=== PATIENT | male | born 1965 | race Caucasian/White ===

== ENCOUNTER 2021-04-27 01:03 | Observation (INO) | payer BC, SELFPAY ==
[2021-04-27] VITALS (18 sets, daily range): BP systolic 95–119; BP diastolic 57–79; PULSE 74–98; RESP 15–19; TEMP 36.7–37.2; O2SAT 94–97; BMI 23.1
--- NOTE | 2021-04-27 02:24 | CTR_ITS ---
PROCEDURE INFORMATION: Exam: CTA Chest With Contrast Exam date and time: 04/27/2021 2:24 AM Age: 55 years old Clinical indication: Right-sided; Prior surgery; Surgery date: 6+ months; Surgery type: Left kidney cancer; Patient HX: Right sided chest pain x 3 months getting worse; Additional info: SOB cp TECHNIQUE: Imaging protocol: Computed tomographic angiography of the chest with contrast. 3D rendering (Not supervised by radiologist): MIP and/or 3D reconstructed images were created by the technologist. Radiation optimization: All CT scans at this facility use at least one of these dose optimization techniques: automated exposure control; mA and/or kV adjustment per patient size (includes targeted exams where dose is matched to clinical indication); or iterative reconstruction. Contrast material: VISIPAQUE; Contrast volume: 95 ml; Contrast route: INTRAVENOUS (IV); COMPARISON: CTA Chest-Pulmonary Emb [id number] 03/11/2017 8:22 PM RADIATION DOSE METRICS: Total DLP (mGy-cm): 649.7 FINDINGS: Pulmonary arteries: Normal. No pulmonary emboli. Aorta: Unremarkable. No aortic aneurysm. No aortic dissection. Lungs: Moderate right lower lobe pneumonia with moderate to severe left lower lobe pneumonia. Pleural spaces: Unremarkable. No pneumothorax. No pleural effusion. Heart: Unremarkable. No cardiomegaly. No pericardial effusion. Lymph nodes: Calcified left hilar nodes and/or mediastinal nodes and/or lung granulomas consistent with old granulomatous disease. Gallbladder and bile ducts: Surgical clips in the gallbladder fossa consistent with cholecystectomy. Spleen: One or more accessory splenules. 16.0 x 13.8 cm moderate splenomegaly. Bones/joints: Unremarkable. No acute fracture. Soft tissues: Unremarkable. CT/CT angio chest PE protcl [id number] IMPRESSION: 1. Moderate right lower lobe pneumonia with moderate to severe left lower lobe pneumonia. 2. 16.0 x 13.8 cm moderate splenomegaly. 3. No pulmonary embolus or aortic dissection. Radiation Dose CTDIVOL = (mGy): DLP = 649.7 (mGy-cm)
--- NOTE | 2021-04-27 02:26 | ECG_ITS ---
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 Measurements Intervals [place] Rate: 97 P: 36 WV: 164 QRS: 14 QRSD: 100 T: 30 QT: 341 QTc: 435 Interpretive Statements SINUS RHYTHM INTERPRETATION BASED ON A DEFAULT AGE OF 40 YEARS Compared to ECG 09/20/2018 02:02:07 Intraventricular conduction delay no longer present Electronically Signed On 04-28-2021 9:37:38 CDT by Kacy Monet M.D. [id number]
--- NOTE | 2021-04-27 02:30 | W.ED.SOB ---
HPI - SOB/Dyspnea General: Chief Complaint: Shortness of Breath/Dyspnea Stated Complaint: pneumonia worsening Time Seen by Provider: 04/27/21 01:33 History of Present Illness: HPI Narrative: 85-year-old male with a history of COPD/emphysema, lymphoma, and kidney cancer, presents with cough, pleuritic right-sided chest pain, and shortness of breath. He says he has been sick on and off for the last month or more. He has been treated at least 2 times for pneumonia as an outpatient. He is also been treated with steroids he says he improves for a bit, but then his status declines rapidly. He said he has had a 25 pound weight loss in the last couple of months. Cough is productive of a green sputum. MD elicited complaint: shortness of breath, cough and chest pain Pertinent past history: COPD and pneumonia Onset (ago): week(s) Context: recent illness Timing: progressively worsening Severity: moderate Exacerbating factors: exertion Known history of: COPD Associated symptoms: Reports chest congestion, chest pain, cough, fever(s), nausea and vomiting (Posttussive); Deny abdominal pain or dizziness Review of Systems Const: Reports: fever(s) Eyes: Denies: change in vision ENMT: Denies: swelling of lips/tongue, bleeding gums or sinus pain Card: Reports: chest pain Resp: Reports: chest congestion GI: Reports: nausea and vomiting (Posttussive); Denies: abdominal pain : Denies: difficulty urinating, dysuria or hematuria Musc: Reports: back pain; Denies: neck pain Skin/Breast: Denies: rash or erythema Neuro: Denies: headache(s), dizziness or vertigo Psych: Denies: anxiety PFSH ED PFSH: Medical History (Updated 04/27/21 @ 05:29 by Chase Arambula DO) Neuropathy Non Hodgkin's lymphoma Polyarthritis Port-A-Cath in place Renal cell cancer Status post left nephrectomy Surgical History (Updated 04/27/21 @ 05:03 by Susan Riley MD) History of cholecystectomy S/P right knee arthroscopy Family History (Updated 04/27/21 @ 05:03 by Susan Riley MD) Other Cancer Social History (Updated 04/27/21 @ 05:04 by Susan Riley MD) Smoking and tobacco status: never smoked Alcohol intake: current Alcohol intake frequency: holidays/special occasions only Substance/Drug Use: never Housing: House Physical Exam Const: GENERAL APPEARANCE: frail appearing ORIENTATION/CONSCIOUSNESS: Yes oriented to person, Yes oriented to place and Yes oriented to time HENMT: COMMON NORMALS: normocephalic, external ears normal and Normal external nose present HEAD & SCALP: normocephalic FACE & SINUS: normal facial exam NOSE: Normal external nose present and No nasal discharge present EXTERNAL EAR: Yes external ears normal Eye: COMMON NORMALS: Equal, round and reactive pupils present, EOMs intact bilaterally and conjunctivae normal EYELID: eyelids normal CONJUNCTIVA: Yes conjunctivae normal PUPIL: Yes Equal, round and reactive pupils present Neck/C-Spine: GENERAL: No tracheal deviation Chest: COMMONS NORMALS: normal inspection of the chest CHEST: No tenderness Resp: COMMON NORMALS: clear to auscultation bilaterally EFFORT & INSPECTION: No tachypneic, No respiratory distress, No retractions, No uses accessory muscles and No tracheal deviation AUSCULTATION: clear to auscultation bilaterally, no rhonchi, no wheezes and lung sounds not diminished Cardio: COMMON NORMALS: regular rate and regular rhythm RATE: regular rate RHYTHM: regular rhythm HEART SOUNDS: no murmurs PERIPHERAL PULSES: radial pulses present GI: INSPECTION: No abdominal distension AUSCULTATION: No Hyperactive bowel sounds present and No Hypoactive bowel sounds present PALPATION: No Guarding due to palpation present (GI) and No Rigid due to palpation PERCUSSION: no dullness to percussion and no tympanic to percussion Neuro: SENSORIUM/ORIENTATION: Yes oriented to person, Yes oriented to place and Yes oriented to time Psych: COMMON NORMALS: mental status grossly normal Skin: COMMON NORMALS: no rashes or lesions noted GENERAL SKIN EXAM: no rashes or lesions noted Course Vital Signs: Vital signs: Vital Signs Temperature 98.1 F 04/27/21 01:33 Pulse Rate 85 04/27/21 04:40 Respiratory Rate 19 H 04/27/21 04:40 Blood Pressure 119/74 04/27/21 04:40 Pulse Oximetry 94 04/27/21 04:40 MDM - SOB/Dyspnea MDM Narrative: Medical decision making narrative: 55-year-old ill-appearing gentleman with shortness of breath, pleuritic chest pain his hemoglobin is 14. White blood cell count is 14 with 81% neutrophils. His D-dimer is 0.35. Chest CT shows left greater than right-sided basilar pneumonia. He has been treated with 3 different types of antibiotics as an outpatient. He has failed all 3. He has a history of MRSA sepsis. He will be observed for IV vancomycin, and Zosyn broad-spectrum antibiotics given his history. Lab Data: Labs: Lab Results 04/27/21 04/27/21 04/27/21 Range/Units 01:41 01:41 01:41 WBC 14.1 H (4.0-10.0) 10^3/ uL RBC 4.59 (4.1-5.3) 10^6/u L Hgb 14.8 (11.7-16.6) g/dL Hct 41.8 L (42.0-52.0) % MCV 91.1 (80-94) fL MCH 32.2 (28.0-34.0) pg MCHC 35.4 (30.0-36.0) g/dL RDW 12.7 (12.1-15.1) % Plt Count 210 (130-400) 10^3/c mm MPV 10.8 H (7.4-10.4) fL Neut % (Auto) 81.3 % Lymph % (Auto) 8.8 % Blount % (Auto) 8.0 % Eos % (Auto) 0.9 % Baso % (Auto) 0.4 % Neut # (Auto) 11.44 H (1.8-7.7) 10^3/u L Lymph # (Auto) 1.2 (0.8-4.8) 10^3/u L Blount # (Auto) 1.1 H (0.2-0.9) 10^3/u L Eos # (Auto) 0.1 (0.0-0.8) 10^3/u L Baso # (Auto) 0.1 (0.0-0.1) 10^3/u L Nucleated RBC % (a uto) 0 % Nucleated RBCs # 0.0 /100WBC D-Dimer 0.35 (0-0.59) ug/mIFE U Sodium 136 (136-145) mmol/L Potassium 3.5 (3.5-5.1) mmol/L Chloride 99 (98-107) mmol/L Carbon Dioxide 22 (22-29) mmol/L Anion Gap 18.5 (5-19) BUN 10 (6-20) mg/dL Creatinine 1.0 (0.7-1.2) mg/dL GFR Calculation 77.3 L (90-130) mL/min Glucose 88 (65-115) mg/dL Calculated Osmolal ity 280 L (285-295) mOsm/k g Lactic Acid (0.5-2.2) mmol/L Calcium 9.2 (8.5-10.5) mg/dL Total Bilirubin 0.6 (0.15-1.2) mg/dL AST 13 (0-40) U/L ALT 8 (0-41) U/L Alkaline Phosphata se 95 (40-130) IU/L Troponin T Baselin e (0-15) ng/L NT-Pro-B Natriuret Pep 73 (0-125) pg/mL Total Protein 6.2 L (6.6-8.7) g/dL Albumin 0.2 L (3.5-5.2) g/dL Globulin 6.0 H (1.3-4.6) g/dL 04/27/21 04/27/21 Range/Units 01:41 01:41 WBC (4.0-10.0) 10^3/ uL RBC (4.1-5.3) 10^6/u L Hgb (11.7-16.6) g/dL Hct (42.0-52.0) % MCV (80-94) fL MCH (28.0-34.0) pg MCHC (30.0-36.0) g/dL RDW (12.1-15.1) % Plt Count (130-400) 10^3/c mm MPV (7.4-10.4) fL Neut % (Auto) % Lymph % (Auto) % Blount % (Auto) % Eos % (Auto) % Baso % (Auto) % Neut # (Auto) (1.8-7.7) 10^3/u L Lymph # (Auto) (0.8-4.8) 10^3/u L Blount # (Auto) (0.2-0.9) 10^3/u L Eos # (Auto) (0.0-0.8) 10^3/u L Baso # (Auto) (0.0-0.1) 10^3/u L Nucleated RBC % (a uto) % Nucleated RBCs # /100WBC D-Dimer (0-0.59) ug/mIFE U Sodium (136-145) mmol/L Potassium (3.5-5.1) mmol/L Chloride (98-107) mmol/L Carbon Dioxide (22-29) mmol/L Anion Gap (5-19) BUN (6-20) mg/dL Creatinine (0.7-1.2) mg/dL GFR Calculation (90-130) mL/min Glucose (65-115) mg/dL Calculated Osmolal ity (285-295) mOsm/k g Lactic Acid 1.1 (0.5-2.2) mmol/L Calcium (8.5-10.5) mg/dL Total Bilirubin (0.15-1.2) mg/dL AST (0-40) U/L ALT (0-41) U/L Alkaline Phosphata se (40-130) IU/L Troponin T Baselin e 6 (0-15) ng/L NT-Pro-B Natriuret Pep (0-125) pg/mL Total Protein (6.6-8.7) g/dL Albumin (3.5-5.2) g/dL Globulin (1.3-4.6) g/dL Discharge Plan Discharge Patient Disposition: Placed in Observation Clinical Impression: Community acquired pneumonia Qualifiers: Laterality: left Lung location: lower lobe of lung Qualified Code(s): J18.9 - Pneumonia, unspecified organism Coding Level of Care Code ED 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
[2021-04-27] MEDS: sodium chloride 0.9% 1,000 ML 999 ML IV (02:31)
[2021-04-27] MEDS: diphenhydrAMINE 50 mg/mL SDV 1mL IVP (02:41)
[2021-04-27] MEDS: hydrocortisone 100 mg/2 mL SDV IVP (02:41)
[2021-04-27] MEDS: morphine 4 mg/mL SDV 1 mL IVP (02:43)
[2021-04-27] MEDS: ondansetron 2 mg/ML SDV 2 mL 4 MG IVP (02:43)
[2021-04-27 02:46] LABS: Basophils # 0.1 10^3/uL (0.0-0.1); Basophils % 0.4 %; Eosinophils # 0.1 10^3/uL (0.0-0.8); Eosinophils % 0.9 %; Hematocrit 41.8 % (42.0-52.0); Hemoglobin 14.8 g/dL (11.7-16.6); Lymphocytes # 1.2 10^3/uL (0.8-4.8); Lymphocytes % 8.8 %; Mean Corpuscular HGB Conc 35.4 g/dL (30.0-36.0); Mean Corpuscular Hemoglobin 32.2 pg (28.0-34.0); Mean Corpuscular Volume 91.1 fL (80-94); Mean Platelet Volume 10.8 fL (7.4-10.4); Monocytes # 1.1 10^3/uL (0.2-0.9); Neutrophils # 11.44 10^3/uL (1.8-7.7); Neutrophils % 81.3 %; Nucleated Red Blood Cells % 0 %; Platelet Count 210 10^3/cmm (130-400); Red Blood Count 4.59 10^6/uL (4.1-5.3); Red Cell Distribution Width 12.7 % (12.1-15.1); White Blood Count 14.1 10^3/uL (4.0-10.0)
[2021-04-27 02:55] LABS: D Dimer 0.35 ug/mIFEU (0-0.59)
[2021-04-27 02:59] LABS: Lactic Sepsis W/Reflex 1.1 mmol/L (0.5-2.2)
[2021-04-27 03:01] LABS: Troponin(5th) Baseline 6 ng/L (0-15)
[2021-04-27] MEDS: iodixanol 320 mg/mL 100mL Btl IV (03:01)
[2021-04-27 03:10] LABS: Alanine Aminotransferase 8 U/L (0-41); Albumin Level 0.2 g/dL (3.5-5.2); Alkaline Phosphatase 95 IU/L (40-130); Aspartate Amino Transferase 13 U/L (0-40); Blood Urea Nitrogen 10 mg/dL (6-20); Calcium 9.2 mg/dL (8.5-10.5); Carbon Dioxide 22 mmol/L (22-29); Glomerular Filtration Rate 77.3 mL/min (90-130); Glucose 88 mg/dL (65-115); NT Pro B Type Natriuretic Pept 73 pg/mL (0-125); Total Bilirubin 0.6 mg/dL (0.15-1.2); Total Protein 6.2 g/dL (6.6-8.7)
[2021-04-27 03:16] LABS: Anion Gap 18.5 (5-19); Chloride 99 mmol/L (98-107); Osmolality Calculated 280 mOsm/kg (285-295); Potassium 3.5 mmol/L (3.5-5.1); Sodium 136 mmol/L (136-145)
--- NOTE | 2021-04-27 05:01 | P.HP_ITS ---
Providers/Chief Complaint Chief Complaint: pneumonia worsening History of Present Illness Amandeep Velásquez Jr is a 55 year old male who has history of renal cell cancer, non-Hodgkin's lymphoma currently in remission presented today with chief complaint of worsening shortness of breath and fatigue. Patient stating that his symptoms started 5 weeks ago with lethargy, fatigue and shortness of breath, he was seen at [facility], initially he was started on doxycycline, his symptoms improved but got worse as soon as he finished his antibiotic regimen, second time he was put on Levaquin, he experienced similar pattern of initial improvement and then declined after his antibiotics, he was seen at the [facility] third time, chest x-ray showed emphysematous changes, he was put on L evaquin again. At home he has not been feeling well he is describing right- sided chest discomfort which gets worse on any kind of movement, it is reproducible which he is describing as achy. No nausea, vomiting, fever, he only had 1 loose stool otherwise no active diarrhea. He decided to come to the hospital for worsening of his symptoms. Diagnosis in the ER revealed leukocytosis 14.1, D-dimer unremarkable, CTA chest rule out PE however showed basilar infiltrates. He was started on broad-spectrum antibiotics because he failed outpatient therapy. He was saturating well on room air Review of Systems Const: Reports: chills, body aches and fatigue; Denies: fever(s) Eyes: Denies: change in vision ENMT: Denies: throat pain Card: Denies: chest pain Resp: Reports: dyspnea, non-productive cough and pain on inspiration GI: Denies: abdominal pain : Denies: flank pain Musc: Denies: neck pain Skin/Breast: Denies: rash Neuro: Denies: headache(s) Psych: Denies: anxiety Endo: Denies: polyuria Kip/Lymph: Denies: easy bruising All/Imm: Denies: urticaria Medications/Allergies Allergies Allergy/AdvReac Type Severity Reaction Status Date / Time Iodinated Contrast Media Allergy ADR-Itching Unverified 04/27/21 03:18 vancomycin Allergy ALGY-Redness Verified 04/27/21 02:37 of Skin PFSH Acute PFSH: Medical History Neuropathy Non Hodgkin's lymphoma Polyarthritis Port-A-Cath in place Renal cell cancer Status post left nephrectomy Surgical History History of cholecystectomy S/P right knee arthroscopy Family History Other Cancer Social History Smoking and tobacco status: never smoked Alcohol intake: current Alcohol intake frequency: holidays/special occasions only Substance/Drug Use: never Housing: House Vitals/I&O/Wt Last Vital Signs Temp 98.1 F 04/27/21 01:33 Pulse 85 04/27/21 04:40 Resp 19 H 04/27/21 04:40 BP 119/74 04/27/21 04:40 Pulse Ox 94 04/27/21 04:40 04/26/21 04/26/21 04/27/21 14:59 22:59 06:59 Intake Total 1000 / 1000 Balance 1000 / 1000 Weight last 48 hrs Weight 81.647 kg Physical Exam Narrative: EXAM NARRATIVE: Middle-age male Who appears stated age, clinically looks well-hydrated No active respite distress or chest pain S1, S2 sinus rhythm Bilateral breath sounds inspiratory crackles noted at the bases Abdomen soft Lower extremity no edema gangrene ulcer Suntanned appearance Appropriate mood and affect EOMI, PERRLA GCS 15 awake alert oriented x3 No joint swelling Data : 04/27/21 01:41 04/27/21 01:41 A&P Assessment and plan (1) Community acquired pneumonia: Status: Acute Additional A&P Information Community-acquired pneumonia Procalcitonin unremarkable, D-dimer unremarkable, CT rule out PE bilateral infiltrates especially at the bases, will check COVID-19 Start DuoNeb, currently saturating well on room air I would like to give him another day of IV antibiotics and de-escalate if his leukocytosis improving Chest imaging did not reveal any recurrence of cancer We will check MRSA PCR Urine antigens and blood culture requested No signs of sepsis DVT prophylaxis Lovenox Cardiac diet Full code Attestations Medical Necessity Statement*: Likely will be discharged within 48 hours on oral antibiotics, failed outpatient therapy, symptoms consistent persistent after 3 rounds of antibiotics, lethargy and fatigue rule out COVID-19 Time Spent in Patient Care: 40mins Coding Level of Care Code Acute 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
[2021-04-27] MEDS: piperacillin-tazobactam 4.5 GM in sodium chloride 0.9% (plus) 50 ML IV (05:16)
[2021-04-27 05:33] LABS: C Reactive Protein 90.8 mg/L (0.0-4.9)
[2021-04-27 06:31] LABS: Ferritin 1044 ng/mL (30-400)
[2021-04-27] MEDS: vancomycin 1,000 MG in sodium chloride 0.9% 250 ML 125 MG IV (06:33)
[2021-04-27 06:46] LABS: SARS Covid-2 Antigen Negative (Negative)
[2021-04-27] MEDS: clindamycin 150 mg Capsule 300 MG PO ×3 (08:26→21:06)
[2021-04-27] MEDS: enoxaparin 40 mg/0.4 mL Syringe SUBCUT (08:26)
[2021-04-27] MEDS: ipratropium-albuterol 3 mL Neb INHALATION ×3 (08:56→21:15)
[2021-04-27 09:11] LABS: Lactate Dehydrogenase 157 U/L (135-225)
[2021-04-27 09:46] LABS: Erythrocyte Sedimentation Rate 72 mm/hr (0-10)
[2021-04-27 10:12] LABS: Add Urine Microscopic? NO; Charge for UA Resulting for Rev
[2021-04-27 10:15] LABS: Urine Appearance Clear (CLEAR); Urine Color Straw (Yellow); pH Urine 5 (5-7)
[2021-04-27 10:16] LABS: Bilirubin Urine Neg (Negative); Blood Urine Neg (Negative); Glucose Urine UA Norm (Normal); Ketones Urine Negative (Negative); Leukocyte Esterase Urine Negative (Negative); Nitrate Urine Negative (Negative); Protein Urine Neg (Negative); Urobilinogen Urine Norm (Negative)
[2021-04-27 11:32] LABS: HIV 1 & 2 Antibody Non-Reactive (Non-Reactiv); HIV 1 & 2 Antigen Non-Reactive (Non-Reactiv)
--- NOTE | 2021-04-27 11:47 | P.PN_ITS ---
Subjective Subjective: Interval history: He overall is doing about okay, slightly better. A bit less phlegm production, and so has been unable to provide sputum sample. Discussed with him regarding concerning findings with very elevated inflammatory markers, CRP over 90, ferritin of 1044. Also albumin very low (although not sure if may be this is spurious result as listed as 0.2.). Also elevated globulin. Discussed with him concern for additional condition which may be contributing to his protracted symptoms as he states he has not been feeling in the last 3 months. He is having sore throat. He reports occasional night sweats. Sometimes feeling hot, but not having fevers. He reports longstanding peripheral neuropathy. He has not noticed any lymphadenopathy. We discussed with him regarding splenomegaly noted on CT. He does get recurrent/protracted joint pains, which she states previously or even thought to be rheumatoid related, but does say that this was assessed previously. Discussed with him additional assessments including protein electrophoresis, HIV, MICHEL, RF, to be gin. 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 He verbalized understanding and agreement. Will be following up very closely. He normally sees Dr. Ryder Carrillo in [place] at [facility]. Vitals/I&O/Wt Last Vital Signs Temp 98.8 F 04/27/21 11:29 Pulse 95 04/27/21 11:29 Resp 18 04/27/21 11:29 BP 105/64 04/27/21 11:29 Pulse Ox 95 04/27/21 11:29 04/26/21 04/27/21 04/27/21 22:59 06:59 14:59 Intake Total 1050 / 1050 250 / 250 Output Total 700 / 700 Balance 1050 / 1050 -450 / -450 Weight last 48 hrs Weight 81.647 kg Physical Exam Const: COMMON NORMALS: no acute distress and patient oriented x3 HENMT: COMMON NORMALS: oropharynx normal Neck/C-Spine: COMMON NORMALS: no JVD Resp: COMMON NORMALS: normal respiratory effort and clear to auscultation bilaterally AUSCULTATION: clear to auscultation bilaterally and diminished lung sounds Cardio: COMMON NORMALS: no JVD, regular rhythm, S1 normal heart sound present, S2 normal heart sound present and No murmurs present (Cardio) RHYTHM: regular rhythm HEART SOUNDS: S1 normal heart sound present and S2 normal heart sound present GI: COMMON NORMALS: Normal to inspection, nondistended, normoactive bowel sounds present, Soft to palpation and non-tender PALPATION: Yes Soft to palpation Extremity: COMMON NORMALS: no joint enlargement and no pedal edema Neuro: COMMON NORMALS: patient oriented x3 and moves all extremities Skin: COMMON NORMALS: no rashes or lesions noted GENERAL SKIN EXAM: no rashes or lesions noted Data : 04/27/21 01:41 04/27/21 11:28 Micro: Microbiology 04/27/21 07:57 MRSA Culture - Final Nose 04/27/21 09:45 Legionella Urinary Antigen - Final Urine,Voided Bacterial Antigens - Final 04/27/21 05:40 Blood Culture - Preliminary Blood SPECIMEN COLLECTED 04/27/21 05:22 Blood Culture - Preliminary Blood SPECIMEN COLLECTED A&P Assessment and plan (1) Community acquired pneumonia: Discussed with him for now we will continue to treat for community- acquired pneumonia as seen on images in bilateral lower lobe distribution. However, he is not requiring oxygen, his phlegm production is decreasing. Additionally procalcitonin is 0.2. Continue to biotics for now, and will continue to monitor in the hospital overnight to exclude that he is worsening given other rather concerning findings including quite significant inflammatory markers with CRP 90, ferritin 1044, ESR obtained as well is 72. LDH normal, haptoglobin 342. Platelets are normal. He has chronic neuropathy. I do not feel lymphadenopathy, does have splenomegaly. He is having sore throat. Reports occasional sweats at night, although not regular. He reports chronic arthralgias. Quite significantly low albumin, I do not know that this result is real, 0.2. Requesting recheck. Does have elevated globulin level. Low total protein. Discussed with him. Concerns are as follows: Possible recurrence of lymphoma, possible recurrence of renal cell carcinoma, possible other associated conditions protracted atypical infection, possible Castleman disease, adult onset stills disease, or other condition. Doubt hemochromatosis as symptoms otherwise not compatible. We are checking additionally SPEP, immunofixation, HIV, MICHEL, RF. UA. Requested HHV 8. Continue to biotics for now. Will need close follow-up with his oncologist. Discussed with him consideration of follow-up with infectious disease. In case hypergammaglobulinemia suggestive of MM, avoid contrast study. Otherwise will need contrast CT abdomen pelvis to look additionally for lymphadenopathy, recurrence of renal cell cancer, or other concerning findings. Status: Acute Qualifiers: Laterality: left Lung location: lower lobe of lung Qualified Code(s): J18.9 - Pneumonia, unspecified organism Additional A&P Information Resume home medications. Attestations Medical Necessity Statement*: Continue hospitalization for assessment management of protracted malaise, persistent pneumonia not resolved with outpatient multiple treatments, significant inflammatory marker findings with concern for possible additional conditions causing his symptoms with history of lymphoma, renal cell cancer, with possibility of recurrence of one of his malignancies, renal cell cancer, lymphoma, or other hematologic malignancy, or Castleman disease, adult onset stills disease or atypical infection. Coding Level of Care Code Acute Material Requirements Planning Manager for [facility] Fwd Exam Comprehensive Diagnoses Community acquired pneumonia J18.9 Laterality: left Lung location: lower lobe of lung
[2021-04-27 11:53] LABS: Alanine Aminotransferase 7 U/L (0-41); Albumin Level 3.4 g/dL (3.5-5.2); Alkaline Phosphatase 95 IU/L (40-130); Aspartate Amino Transferase 10 U/L (0-40); Blood Urea Nitrogen 11 mg/dL (6-20); Calcium 9.6 mg/dL (8.5-10.5); Carbon Dioxide 27 mmol/L (22-29); Chloride 102 mmol/L (98-107); Globulin 2.7 g/dL (1.3-4.6); Glomerular Filtration Rate 87.3 mL/min (90-130); Glucose 116 mg/dL (65-115); Osmolality Calculated 286 mOsm/kg (285-295); Sodium 138 mmol/L (136-145); Total Bilirubin 0.7 mg/dL (0.15-1.2); Total Protein 6.1 g/dL (6.6-8.7)
[2021-04-27] MEDS: nystatin 100,000 unit/mL UDC 5 mL 500000 UNIT PO ×3 (12:50→21:07)
[2021-04-27] MEDS: HYDROcodone-acetaminophen 10-325 mg Tablet 1 TAB PO ×3 (12:53→23:25)
[2021-04-27] MEDS: fentaNYL 50 mcg Patch 1 PATCH TRANSDERMA (13:38)
[2021-04-27] MEDS: mupirocin oint 22 gm 1 APPLIC TOPICAL (17:03)
[2021-04-27] MEDS: vancomycin 1,250 MG/250 ML PIGGYBACK 166.67 MG IV (17:03)
[2021-04-27] MEDS: diphenhydrAMINE 50 mg/mL SDV 1mL 25 MG IVP (18:58)
[2021-04-28] VITALS (7 sets, daily range): BP systolic 99–105; BP diastolic 62–67; PULSE 78–90; RESP 17–18; TEMP 36.4–36.7; O2SAT 91–96
[2021-04-28] MEDS: clindamycin 150 mg Capsule 300 MG PO ×2 (04:02→08:26)
[2021-04-28 06:13] LABS: Basophils % 0.2 %; Eosinophils # 0.1 10^3/uL (0.0-0.8); Eosinophils % 1.6 %; Hematocrit 35.1 % (42.0-52.0); Hemoglobin 12.1 g/dL (11.7-16.6); Lymphocytes # 1.2 10^3/uL (0.8-4.8); Lymphocytes % 13.6 %; Mean Corpuscular HGB Conc 34.5 g/dL (30.0-36.0); Mean Corpuscular Hemoglobin 31.9 pg (28.0-34.0); Mean Corpuscular Volume 92.6 fL (80-94); Mean Platelet Volume 10.3 fL (7.4-10.4); Monocytes # 0.7 10^3/uL (0.2-0.9); Monocytes % 7.8 %; Neutrophils # 6.71 10^3/uL (1.8-7.7); Nucleated Red Blood Cells % 0 %; Platelet Count 186 10^3/cmm (130-400); Red Blood Count 3.79 10^6/uL (4.1-5.3); Red Cell Distribution Width 13.1 % (12.1-15.1); White Blood Count 8.8 10^3/uL (4.0-10.0)
[2021-04-28 06:52] LABS: C Reactive Protein 43.2 mg/L (0.0-4.9)
[2021-04-28] MEDS: enoxaparin 40 mg/0.4 mL Syringe SUBCUT (08:26)
[2021-04-28] MEDS: nystatin 100,000 unit/mL UDC 5 mL 500000 UNIT PO ×2 (08:26→12:05)
[2021-04-28] MEDS: mupirocin oint 22 gm 1 APPLIC TOPICAL (08:39)
[2021-04-28] MEDS: ipratropium-albuterol 3 mL Neb INHALATION (08:45)
[2021-04-28 09:22] LABS: PROTEIN, TOTAL 5.7 g/dL (6.1-8.1)
[2021-04-28] MEDS: HYDROcodone-acetaminophen 10-325 mg Tablet 1 TAB PO (10:13)
--- NOTE | 2021-04-28 10:16 | PC.SOCIAL ---
No needs from CM/SS patient does not qualify for O2
--- NOTE | 2021-04-28 11:41 | P.DS_ITS ---
Discharge Providers Date of Admission: 04/27/21 06:05 Date of Discharge: April 28, 2021 Attending Provider at Admission: Susan Riley MD Attending Provider at Discharge: Raphael Irwin Diagnoses at Discharge Discharge Diagnosis (1) Community acquired pneumonia: Status: Acute Permanent problem details: Nonresolving pneumonia, associated other symptoms, malaise, arthralgias, sore throat, chronic neuropathy, intermittent night sweats, noted splenomegaly, significantly elevated inflammatory markers. Qualifiers: Laterality: left Lung location: lower lobe of lung Qualified Code(s): J18.9 - Pneumonia, unspecified organism Reason for Visit Reason for Visit: pneumonia worsening Hospital Course Hospital Course Very pleasant 55-year-old gentleman with history of renal cell cancer status post nephrectomy several decades ago, non-Hodgkin's lymphoma in remission, history of Port-A-Cath with staphylococcal infection, Port-A-Cath removal, history of polyarthritis of unidentified etiology, not rheumatoid, was hospitalized for observation after nonresolving pneumonia despite treatment with several courses of antibiotics including doxycycline, and several courses of Levaquin. He describes symptoms of about 3 months duration, with lethargy, fatigue, shortness of breath. He also describes sore throat. Arthralgias. He has also longstanding peripheral neuropathy. He does report improvement in phlegm production which currently is resolving, and he cannot provide a very good sample. With history of bacteremia, blood culture had been collected, MRSA swab by PCR was negative. Urine bacterial antigens negative for Legionella, GBS, Haemophilus influenza, strep pneumo, meningococcus. Rapid antigen test for COVID-19 was negative. Sputum culture so far with moderate gram-negative rods, few gram-positive cocci in clusters. This will need to be followed up. CTA chest done on presentation showed moderate right lower lobe pneumonia with moderate to severe left lower lobe pneumonia. Also incidentally noted splenomegaly 16 x 13.8 cm. No pulmonary embolus or aortic dissection. Calcified left hilar and/or mediastinal nodes and/or lung granulomas consistent with old granulomatous disease. The protracted course of his illness alongside with very elevated acute phase reactants including ferritin of 1044, CRP 90.8, ESR 72, haptoglobin 342 pain concerning for other causes of his nonresolving pneumonia. On presentation with leukocytosis 14.1, today WBC count down to 8.8. He received treatment with clindamycin, vancomycin. He has not required any oxygen in the hospital, and does not qualify on home O2 evaluation. Additional concerning findings include elevated globulin level at 6 on presentation. Low albumin, 0.2, although this appears to have been spurious result. Today 3.4. Together with his symptoms of arthralgias, sore throat, neuropathy (although chronic), intermittent night sweats, splenomegaly, discussed with him additional possible etiologies of his nonresolving condition, including possible recurrence of malignancy with non-Hodgkin lymphoma or renal cell cancer. Possibly parap roteinemia. We did request electrophoresis, immunofixation. On examination I could not detect any lymph nodes that are enlarged apart from the noted splenomegaly. We discussed with him that in case of paraproteinemia, additional CT with contrast may be rather risky, especially with single kidney with history of nephrectomy. In case paraproteinemias excluded, he would then benefit from additional assessment for any other lymph node enlargement to aid investigation for potential recurrence of NHL and/or renal cell cancer. With the accompanying symptoms listed above we discussed additional p ossibilities including Castleman disease and with inflammatory changes, pulmonary changes, other possibilities including adult onset stills disease, or granulomatosis with polyangiitis. We also discussed possibility of protracted atypical infection. Additional investigations have been initiated after discussion with him with testing for HIV which has been negative. We have also requested for HHV 8 qualitative PCR. Additionally MICHEL and ANCA have been requested. Rheumatoid factor checked and is not elevated. UA was unremarkable. Given he is otherwise not requiring any oxygen support, remains without signs of sepsis, overall is feeling a little bit better, he is cautiously returning home today, however, discussed with him the importance and need for additional follow-up as we are suspecting there is additional underlying condition apart from simple pneumonia. He is asked to follow-up with his primary provider, he is asked to follow-up with his hematology speech and language specialist Dr. Ryder Carrillo in [place] at soonest available appointment after electrophoresis results are available to consider at that point safety of proceeding with contrast CT abdomen pelvis and/or other appropriate work-up. He is asked to follow-up with rheumatology, infectious disease. We discussed also consideration of possible ILD given pulmonary changes, overall fatigue, malaise, although he has not been hypoxic. 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 We are referring him additionally for pulmonary function testing, depending on results and input from other subspecialists, consider referral to pulmonology. He verbalized understanding and agreement with plan. He understands to seek medical attention immediately in case of any deterioration or new concerning symptoms. Physical Exam Const: COMMON NORMALS: no acute distress and patient oriented x3 HENMT: COMMON NORMALS: oropharynx normal Neck/C-Spine: COMMON NORMALS: no JVD Resp: COMMON NORMALS: normal respiratory effort and clear to auscultation bilaterally AUSCULTATION: clear to auscultation bilaterally Cardio: COMMON NORMALS: no JVD, regular rhythm, S1 normal heart sound present, S2 normal heart sound present and No murmurs present (Cardio) RHYTHM: regular rhythm HEART SOUNDS: S1 normal heart sound present and S2 normal heart sound present GI: COMMON NORMALS: Normal to inspection, nondistended, normoactive bowel sounds present, Soft to palpation and non-tender PALPATION: Yes Soft to palpation Extremity: COMMON NORMALS: no joint enlargement and no pedal edema Neuro: COMMON NORMALS: patient oriented x3 and moves all extremities Skin: COMMON NORMALS: no rashes or lesions noted GENERAL SKIN EXAM: no rashes or lesions noted Discharge Data Data Completed and Pending: Completed Studies During Hospitalization Category Date Time Status CT angio chest PE protcl [id number] Urge nt Cat Scan 04/27/21 02:24 Completed Pending at discharge Category Date Time Status MICHEL Screen w/ Ref lavell Routine Lab 04/27/21 09:49 Received Anti-Neutrophil C ytoplasmic AB Rout ine Lab 04/28/21 11:15 Ordered Blood Culture Sta t Lab 04/27/21 05:40 Results Immunofixation Se rum Routine Lab 04/27/21 10:07 Received Miscellaneous Cami t Routine Lab 04/27/21 11:28 Received Sputum Culture an d Gram Stain Stat Lab 04/27/21 10:54 Results Total Protein Shira ctrophoresis Routi ne Lab 04/27/21 10:07 Results Labs from last 24 hours 04/28/21 04/28/21 04/27/21 05:54 05:54 11:28 WBC 8.8 RBC 3.79 L Hgb 12.1 Hct 35.1 L MCV 92.6 MCH 31.9 MCHC 34.5 RDW 13.1 Plt Count 186 MPV 10.3 Neut % (Auto) 76.0 Lymph % (Auto) 13.6 [place] % (Auto) 7.8 Eos % (Auto) 1.6 Baso % (Auto) 0.2 Neut # (Auto) 6.71 Lymph # (Auto) 1.2 [place] # (Auto) 0.7 Eos # (Auto) 0.1 Baso # (Auto) 0.0 Nucleated RBC % (a uto) 0 Nucleated RBCs # 0.0 Sodium 138 Potassium 4.0 Chloride 102 Carbon Dioxide 27 Anion Gap 13.0 BUN 11 Creatinine 0.9 GFR Calculation 87.3 L Glucose 116 H Calculated Osmolal ity 286 Calcium 9.6 Total Bilirubin 0.7 AST 10 ALT 7 Alkaline Phosphata se 95 C-Reactive Protein 43.2 H Total Protein 6.1 L Albumin 3.4 L Globulin 2.7 04/27/21 10:07 WBC RBC Hgb Hct MCV MCH MCHC RDW Plt Count MPV Neut % (Auto) Lymph % (Auto) [place] % (Auto) Eos % (Auto) Baso % (Auto) Neut # (Auto) Lymph # (Auto) [place] # (Auto) Eos # (Auto) Baso # (Auto) Nucleated RBC % (a uto) Nucleated RBCs # Sodium Potassium Chloride Carbon Dioxide Anion Gap BUN Creatinine GFR Calculation Glucose Calculated Osmolal ity Calcium Total Bilirubin AST ALT Alkaline Phosphata se C-Reactive Protein Total Protein 5.7 L Albumin Globulin Vitals: Last Vital Signs Temp 98.0 F 04/28/21 08:00 Pulse 81 04/28/21 08:55 Resp 18 04/28/21 08:49 BP 105/67 04/28/21 08:00 Pulse Ox 94 04/28/21 09:38 Discharge Plan Discharge Patient Disposition: Home Condition: Stable Prescriptions: New doxycycline hyclate 100 mg capsule 100 mg PO BID 10 Days Qty: 20 RF: 0 cefdinir 300 mg capsule 300 mg PO BID 10 Days Qty: 20 RF: 0 Continued fentanyl 50 mcg/hr patch 72 hour 50 mcg transdermal Q3D RF: 0 Symbicort 160-4.5 mcg/actuation HFA aerosol inhaler 2 puff INHALATION DAILY RF: 0 nystatin 100,000 unit/mL suspension 5 ml PO QID RF: 0 hydrocodone-acetaminophen 1 tab PO QID PRN (Reason: Pain) RF: 0 mupirocin 2 % ointment 1 applic TOPICAL BID RF: 0 Discharge Orders: Discharge Order (Routine); Ordered 04/28/21 Ordered By: Raphael Irwin Referrals: Rheumatology [Provider Group] - 1 week (Please call Thursday to schedule a follow up appointment. Unresolving PNA, malaise, ferriting 1044, CRP 90.8, splenomegaly, arthralgia, sore throat, Hx malignancies) Macey Akcerman MD [Staff Physician] - 4-7 days (Please call Thursday to schedule a follow up appointment. Unresolving PNA, malaise, ferriting 1044, CRP 90.8, splenomegaly, Hx malignancies) Ryder Carrillo MD [Referring] - 1 week (Please call Thursday to schedule a follow up appointment. Unresolving PNA, malaise, ferriting 1044, CRP 90.8, splenomegaly, arthralgia, sore throat, Hx malignancies) Trish Hauser MD [Hospitalist] - 1 week (Unresolving PNA, malaise, ferritin 1044, CRP 90.8, splenomegaly, arthralgia, sore throat, Hx malignancies) Discharge Diet: Usual diet Discharge Activity: Increase activity as tolerated and Return to work/school after cleared by PCP/Specialist Patient Instructions: Doxycycline (By mouth), Cefdinir (By mouth), Pneumonia (GEN), Opioid Safety, Pneumonia Stoplight Activity Restrictions/Additional Instructions: Due to nonresolving pneumonia, associated elevated inflammatory markers, ferritin 1044, CRP 90.8, ESR 72, elevated globulin level on presentation, arthralgias, sore throat, protracted symptoms over about 3 months, additional work-up has been requested. Please follow-up regarding results with your primary provider as well as the specialists you are referred to. Additional studies pending are serum electrophoresis, immunofixation. MICHEL, ANCA. HHV 8. Please note HIV was negative. Rheumatoid factor not elevated. Please discuss with your primary provider and specialists in case there is no improvement in your condition regarding nonresolving pneumonia and additional symptoms which may be either due to persistent infection with atypical organism, possibility of recurrence of malignancy with history of non-Hodgkin lymphoma, renal cell cancer, possibility of additional conditions like Castleman disease, or inflammatory condition including Adult Onset Still's disease, or granulomatosis with polyangiitis. Please follow-up with your oncologist, rheumatology, infectious disease with soonest available appointments. Please note you are referred for pulmonary function testing in 2 weeks. Interstitial lung disease sometimes may present similarly as well. Following pulmonary function testing, depending on her condition, as well as input from the subspecialist physicians, discussed consideration of assessment by pulmonology. If returning to work, consider light duties, otherwise please return after you see your primary provider. Do not drive heavy machinery or climb heights. In case of development of fever, progressive shortness of breath, any chest pain, joint swelling, unusual rashes, or other concerning symptoms, seek medical attention. Discharge Attestations Time Spent in Discharge Care*: greater than 30 min Quality Metrics Clinical Quality Measures During this hospital stay, did patient experience: None Coding Level of Care Code Acute Chg FW [place] note Diagnoses Community acquired pneumonia J18.9 Laterality: left Lung location: lower lobe of lung
[2021-04-29 13:33] LABS: ALPHA 1 GLOBULIN 0.5 g/dL (0.2-0.3); BETA 1 GLOBULIN 0.3 g/dL (0.4-0.6); BETA 2 GLOBULIN 0.3 g/dL (0.2-0.5); GAMMA GLOBULIN 0.6 g/dL (0.8-1.7)
[2021-04-29 15:18] LABS: Anti-Nuclear Antibody Screen NEGATIVE (NEGATIVE)
== END 2021-04-28 13:34 | disposition home or self-care (01) ==
LOC: ER 05:29 → MEDSURG 08:01
PROVIDERS: Admitting Provider Internal Medicine; Emergency Provider Emergency Medicine; Visit Provider Internal Medicine
DX: J18.9 Pneumonia, unspecified organism (principal); Z85.53 Personal history of malignant neoplasm of renal pelvis
CPT/HCPCS: 36415; 71275; 80053; 81003; 82728; 83010; 83605; 83615; 83880; 84145; 84155; 84165; 84260; 84484; 85025; 85378; 85651; 86038; 86140; 86403; 86431; 87040; 87070; 87205; 87426; 87449; 87641; 87806; 93005; 94640; 96365; 96367; 96372; 96375; 99285; G0378; J1200; J1650; J1720; J2270; J2405; J2543; J3370; J7030; J7050; Q9967

== ENCOUNTER → 2021-08-15 11:00 | Outpatient (BNVA) | payer OTHER, SELFPAY | PROVIDERS: Visit Provider Internal Medicine | DX: M25.50 Pain in unspecified joint (principal); R79.82 Elevated C-reactive protein (CRP); G62.9 Polyneuropathy, unspecified; Z79.899 Other long term (current) drug therapy; Z11.59 Encounter for screening for other viral diseases; Z11.1 Encounter for screening for respiratory tuberculosis; R53.83 Other fatigue; Z90.5 Acquired absence of kidney; Z85.72 Personal history of non-Hodgkin lymphomas; Z85.528 Personal history of other malignant neoplasm of kidney; Z92.21 Personal history of antineoplastic chemotherapy | CPT/HCPCS: 36415; 81003; 82306; 82550; 82607; 82728; 82784; 83540; 84443; 85651; 86140; 86480; 86704; 86803; 86812; 87340; 99204 ==

== ENCOUNTER 2021-08-20 07:27 | Outpatient (CLI) | payer OTHER, SELFPAY ==
--- NOTE | 2021-08-20 07:33 | XRR_ITS ---
PROCEDURE INFORMATION: Exam: XR Right Foot Exam date and time: 08/20/2021 7:33 AM Age: 56 years old Clinical indication: Condition or disease; Other: Psoriasis, unspecified; Additional info: M25.50 - pain in unspecified joint TECHNIQUE: Imaging protocol: XR Right foot. Views: 1 or 2 views. COMPARISON: CR Ankle 3 views, RIGHT* [id number] 05/19/2015 6:41 PM FINDINGS: Bones/joints: Partially imaged right distal femur plate and screws. Bones intact and normally aligned. No acute or aggressive osseous lesion. Normal appearance of joint spaces. Soft tissues: Normal. XR/XR foot RT 2V [id number] IMPRESSION: No acute findings. Radiation Dose CTDIVOL = (mGy): DLP = (mGy-cm)
--- NOTE | 2021-08-20 07:33 | XRR_ITS ---
PROCEDURE INFORMATION: Exam: XR Bilateral Sacroiliac Joints Exam date and time: 08/20/2021 7:33 AM Age: 56 years old Clinical indication: Condition or disease; Other: Psoriasis, unspecified; Additional info: L40.9 - psoriasis, unspecified TECHNIQUE: Imaging protocol: XR Bilateral XR of the sacroiliac joints. Views: 3 or more views. COMPARISON: CT Abdomen/Pelvis Renal [id number] 03/11/2017 8:14 PM FINDINGS: Bones/joints: Sacroiliac joints appear normal. Lower lumbar degenerative changes, partially imaged. Soft tissues: Normal. XR/XR sacroiliac jts m 3V [id number] IMPRESSION: Normal appearance of the sacroiliac joints. Radiation Dose CTDIVOL = (mGy): DLP = (mGy-cm)
--- NOTE | 2021-08-20 07:33 | XRR_ITS ---
PROCEDURE INFORMATION: Exam: XR Left Foot Exam date and time: 08/20/2021 7:33 AM Age: 56 years old Clinical indication: Pain; Foot; Left; Prior surgery; Additional info: M25.50 - pain in unspecified joint TECHNIQUE: Imaging protocol: XR Left foot. Views: 1 or 2 views. COMPARISON: No relevant prior available FINDINGS: Bones/joints: Bones intact and normally aligned. Normal appearance of the joint spaces. Soft tissues: Normal. XR/XR foot LT 2V [id number] IMPRESSION: No acute findings. Radiation Dose CTDIVOL = (mGy): DLP = (mGy-cm)
--- NOTE | 2021-08-20 07:33 | XRR_ITS ---
PROCEDURE INFORMATION: Exam: XR Left Hand Exam date and time: 08/20/2021 7:33 AM Age: 56 years old Clinical indication: Condition or disease; Other: Psoriasis, unspecified; Additional info: M25.50 - pain in unspecified joint TECHNIQUE: Imaging protocol: XR Left hand. Views: 1 or 2 views. COMPARISON: No relevant prior studies available. FINDINGS: Bones/joints: No acute or aggressive osseous lesions. Bones intact and normally aligned. Incidental note of metallic ring partially obscuring the proximal phalanx of the 4th digit. Normal appearance of the joint spaces. Soft tissues: Normal. XR/XR hand LT 2V [id number] IMPRESSION: No acute radiographic findings. Radiation Dose CTDIVOL = (mGy): DLP = (mGy-cm)
--- NOTE | 2021-08-20 07:33 | XRR_ITS ---
PROCEDURE INFORMATION: Exam: XR Right Hand Exam date and time: 08/20/2021 7:33 AM Age: 56 years old Clinical indication: Condition or disease; Other: Psoriasis, unspecified; Additional info: M25.50 - pain in unspecified joint TECHNIQUE: Imaging protocol: XR Right hand. Views: 1 or 2 views. COMPARISON: No relevant prior studies available. FINDINGS: Bones/joints: Bones intact and normally aligned. No acute or aggressive osseous lesion. Normal appearance of the joint spaces. Soft tissues: Normal. XR/XR hand RT 2V [id number] IMPRESSION: No acute findings. Radiation Dose CTDIVOL = (mGy): DLP = (mGy-cm)
== END 2021-08-20 07:28 | disposition home or self-care (01) ==
PROVIDERS: PCP Family Medicine; Visit Provider Internal Medicine
DX: M25.50 Pain in unspecified joint (principal); L40.9 Psoriasis, unspecified
CPT/HCPCS: 72202; 73120; 73620

== ENCOUNTER → 2021-09-05 15:05 | Outpatient (BNVA) | payer OTHER, SELFPAY | PROVIDERS: PCP Family Medicine; Visit Provider Internal Medicine | DX: M25.50 Pain in unspecified joint (principal); R79.82 Elevated C-reactive protein (CRP); G62.9 Polyneuropathy, unspecified; R77.8 Other specified abnormalities of plasma proteins | CPT/HCPCS: 99214 ==

== ENCOUNTER 2022-02-04 11:24 | Outpatient (CLI) | payer OTHER, SELFPAY ==
--- NOTE | 2022-02-04 11:38 | XR_ITS ---
WS: [id number] XR lumbar spine 2-3V* [id number] REASON FOR EXAM: BACK PAIN/DORSALGIA FINDINGS: No significant rotatory scoliosis on the AP view. Straightening of the normal lordosis on the lateral view. Mild chronic biconcave compression deformities L1-L4. Compared to the previous examination of 07/01/2016. There is been progressive narrowing of the L4-L5 d isc space with anterior osteophyte formation. There may be autofused fusion of the previously severely narrowed L5-S1 disc space. Remaining disc spaces are relatively well-preserved. No spondylolysis. No significant spondylolisthesis. XR/XR lumbar spine 2-3V* [id number] IMPRESSION: Degenerative disc disease at L4-L5 and L5-S1 as above.
== END 2022-02-04 11:25 | disposition home or self-care (01) ==
LOC: RAD 11:27
PROVIDERS: PCP Family Medicine; Visit Provider Family Medicine
DX: M51.36 Other intervertebral disc degeneration, lumbar region (principal); M51.37 Other intervertebral disc degeneration, lumbosacral region
CPT/HCPCS: 72100

== ENCOUNTER 2022-08-28 10:20 | Outpatient (CLI) | payer OTHER, SELFPAY ==
--- NOTE | 2022-08-28 10:45 | XR_ITS ---
WS: [id number] Exam: XR chest 2V* [id number] Date/Time of Exam: 08/28/2022 10:46 AM Reason For Exam: PNEUMONIA, UNSPECIFIED ORGANISM Comparison 04/16/2021. The lungs are fully inflated and clear. Normal cardiomediastinal silhouette. Bony structures are inta ct. XR/XR chest 2V* [id number] IMPRESSION: 1. No acute cardiopulmonary finding.
== END 2022-08-28 10:21 | disposition home or self-care (01) ==
PROVIDERS: PCP Family Medicine; Visit Provider Family Medicine
DX: J18.9 Pneumonia, unspecified organism (principal)
CPT/HCPCS: 71046

== ENCOUNTER 2023-12-07 12:13 | Day surgery (SDC) | payer BC, SELFPAY ==
[2023-12-07] VITALS (16 sets, daily range): BP systolic 110–143; BP diastolic 72–98; PULSE 69–103; RESP 12–18; TEMP 36.2–37.2; O2SAT 96–100; BMI 25.0
[2023-12-07 13:53] LABS: Basophils % 0.4 %; Eosinophils # 0.1 10^3/uL (0.0-0.8); Eosinophils % 1.2 %; Hematocrit 46.5 % (37-53); Lymphocytes % 12.1 %; Mean Corpuscular HGB Conc 35.7 g/dL (30-55); Mean Corpuscular Volume 89.6 fl (82-101); Mean Platelet Volume 10.4 fL (7.4-10.4); Monocytes # 0.7 10^3/uL (0.2-0.9); Monocytes % 8.7 %; Neutrophils # 6.47 10^3/uL (1.8-7.7); Neutrophils % 77.4 %; Nucleated Red Blood Cells % 0 %; Platelet Count 186 10^3/cmm (157-399); Red Blood Count 5.19 10^6/uL (3.85-5.65); Red Cell Distribution Width 13.1 % (12.1-15.1); White Blood Count 8.36 10^3/uL (3.29-11.43)
[2023-12-07 14:11] LABS: Alanine Aminotransferase 24 U/L (0-41); Albumin Level 4.5 g/dL (3.5-5.2); Alkaline Phosphatase 101 U/L (40-130); Blood Urea Nitrogen 15 mg/dL (6-20); Calcium 9.9 mg/dL (8.5-10.5); Carbon Dioxide 24 mmol/L (22-29); Chloride 102 mmol/L (98-107); Globulin 3.3 g/dL (1.3-4.6); Glomerular Filtration Rate 76.5 mL/min (90-130); Glucose 101 mg/dL (65-115); Osmolality Calculated 287 mOsm/kg (285-295); Sodium 138 mmol/L (136-145); Total Bilirubin 0.7 mg/dL (0.15-1.2); Total Protein 7.8 g/dL (6.6-8.7)
[2023-12-07 14:12] LABS: Anion Gap 16.5 (5-19); Aspartate Amino Transferase 19 U/L (0-40); Potassium 4.5 mmol/L (3.5-5.1)
--- NOTE | 2023-12-07 15:53 | ED_ITS ---
HPI - General Adult 2 General: Chief complaint: Back Pain/Injury Stated complaint: sent from dr nick garcia Time Seen by Provider: 12/07/23 15:18 Source: patient Mode of arrival: ambulatory History of Present Illness: 58-year-old male presents emergency room plan right lower quadrant abdominal pain. Initially began about a week ago was seem to wax and wane was getting better then worsened again was seen by his primary care doctor to isolated pain to the right lower quadrant worse with motion worse with palpation was referred to the emergency room he denies any fever sweats chills no vomiting or diarrhea. Denies dysuria urgency or frequency. Patient has a solitary right kidney Onset (ago): week(s) Location: abdomen Radiation: back Severity: moderate Quality: sharp Pain Consistency: constant Relieving factors: none Exacerbating factors: none Associated symptoms: Deny chest pain, confusion, cough, diaphoresis, decreased appetite, dyspnea, fevers/chills, headache(s), malaise, nausea, rash, palpitations, seizures, short of breath, syncope, vomiting or weakness Review of Systems 2 Const: Denies: fever(s), chills, malaise or diaphoresis Card: Denies: chest pain, palpitations or syncope Resp: Denies: dyspnea GI: Reports: abdominal pain and GI cramping; Denies: nausea, vomiting or hematochezia : Reports: flank pain; Denies: dysuria, urinary frequency or urinary urgency Musc: Denies: neck pain or back pain Skin/Breast: Denies: rash Neuro: Denies: headache(s) or confusion PFSH ED 2 PFSH: Medical History Polyarthritis Port-A-Cath in place Neuropathy Renal cell cancer Status post left nephrectomy Non Hodgkin's lymphoma Surgical History S/P right knee arthroscopy History of cholecystectomy Family History Mother Cancer Hypertension Hyperlipidemia Rheumatoid arthritis Father Diabetes Denies family history of Lupus Heart attack Stroke Social History Smoking and tobacco/nicotine status: never used tobacco/nicotine Alcohol intake: current Alcohol intake frequency: few times a week Alcohol type: beer Substance/Drug Use: never Housing: House Physical Exam 2 Const: GENERAL APPEARANCE: cooperative and comfortable O RIENTATION/CONSCIOUSNESS: Yes awake, Yes oriented to person, Yes oriented to place and Yes oriented to time HENMT: COMMON NORMALS: normocephalic, atraumatic and hearing grossly normal bilaterally HEAD & SCALP: normocephalic and atraumatic Resp: COMMON NORMALS: normal respiratory effort, No retractions, No use of accessory muscles and clear to auscultation bilaterally AUSCULTATION: clear to auscultation bilaterally Cardio: COMMON NORMALS: regular rate, regular rhythm and No murmurs present (Cardio) RATE: regular rate RHYTHM: regular rhythm GI: COMMON NORMALS: No hepatosplenomegaly present AUSCULTATION: Yes normoactive bowel sounds PALPATION: Yes Tenderness to palpation present (GI) Details: RLQ, Yes Guarding due to palpation present (GI) in the RLQ and Yes No hepatosplenomegaly present Extremity: COMMON NORMALS: normal to inspection, capillary refill normal, no clubbing, cyanosis or edema, no calf tenderness and no pedal edema Neuro: SENSORIUM/ORIENTATION: Yes oriented to person, Yes oriented to place and Yes oriented to time Skin: COMMON NORMALS: no rashes or lesions noted GENERAL SKIN EXAM: no rashes or lesions noted Course 2 Vital Signs: Vital signs: Vital Signs Temperature 98.0 F 12/07/23 12:53 Pulse Rate 103 H 12/07/23 15:12 Respiratory Rate 18 12/07/23 15:12 Blood Pressure 120/92 12/07/23 15:12 Pulse Oximetry 96 12/07/23 15:12 Oxygen Delivery Me thod Room Air 12/07/23 15:12 [facility] - General Adult Medical Decision Making Exam concerning for acute appendicitis based on bedside clinical up appearance. His white count is normal CT confirmed acute appendicitis. Discussed with on- call surgeon will admit basic preop labs have been ordered, including IV fluids patient has been given pain medications and a single dose of Zosyn Medical Records I reviewed the patient's medical records. Lab Data I reviewed the patient's lab results. 12/07/23 13:46 12/07/23 13:46 Radiology Impressions Abdomen/Pelvis CT 12/07/23 15:53 IMPRESSION: 1. Acute appendicitis with no abscess or rupture 2. Prostate enlargement ADDENDUM: 12/07/23 1350 COMMENT: THIS REPORT CONTAINS FINDINGS THAT MAY BE CRITICAL TO PATIENT CARE. The exam findings were verbally communicated by me to JAVON KAPADIA via telephone conference at 4:26 PM [employer] RESOURCE ASSESSOR on 12/07/2023. The findings were acknowledged and understood. Laboratory Results WBC 8.36 10^3/uL (3.29-11.43) 12/07/23 13:46 RBC 5.19 10^6/uL (3.85-5.65) 12/07/23 13:46 Hgb 16.60 g/dL (11.27-16.99) 12/07/23 13:46 Hct 46.5 % (37-53) 12/07/23 13:46 MCV 89.6 fl (82-101) 12/07/23 13:46 MCH 32.0 pg (27-33) 12/07/23 13:46 MCHC 35.7 g/dL (30-55) 12/07/23 13:46 RDW 13.1 % (12.1-15.1) 12/07/23 13:46 Plt Count 186 10^3/cmm (157-399) 12/07/23 13:46 MPV 10.4 fL (7.4-10.4) 12/07/23 13:46 Neut % (Auto) 77.4 % 12/07/23 13:46 Lymph % (Auto) 12.1 % 12/07/23 13:46 [place] % (Auto) 8.7 % 12/07/23 13:46 Eos % (Auto) 1.2 % 12/07/23 13:46 Baso % (Auto) 0.4 % 12/07/23 13:46 Neut # (Auto) 6.47 10^3/uL (1.8-7.7) 12/07/23 13:46 Lymph # (Auto) 1.0 10^3/uL (0.8-4.8) 12/07/23 13:46 [place] # (Auto) 0.7 10^3/uL (0.2-0.9) 12/07/23 13:46 Eos # (Auto) 0.1 10^3/uL (0.0-0.8) 12/07/23 13:46 Baso # (Auto) 0.0 10^3/uL (0.0-0.1) 12/07/23 13:46 Nucleated RBC % (auto) 0 % 12/07/23 13:46 Nucleated RBCs # 0.0 /100WBC 12/07/23 13:46 Sodium 138 mmol/L (136-145) 12/07/23 13:46 Potassium 4.5 mmol/L (3.5-5.1) 12/07/23 13:46 Chloride 102 mmol/L (98-107) 12/07/23 13:46 Carbon Dioxide 24 mmol/L (22-29) 12/07/23 13:46 Anion Gap 16.5 (5-19) 12/07/23 13:46 BUN 15 mg/dL (6-20) 12/07/23 13:46 Creatinine 1.0 mg/dL (0.7-1.2) 12/07/23 13:46 GFR Calculation 76.5 mL/min (90-130) L 12/07/23 13:46 Glucose 101 mg/dL (65-115) 12/07/23 13:46 Calculated Osmolality 287 mOsm/kg (285-295) 12/07/23 13:46 Calcium 9.9 mg/dL (8.5-10.5) 12/07/23 13:46 Total Bilirubin 0.7 mg/dL (0.15-1.2) 12/07/23 13:46 AST 19 U/L (0-40) 12/07/23 13:46 ALT 24 U/L (0-41) 12/07/23 13:46 Alkaline Phosphatase 101 U/L (40-130) 12/07/23 13:46 Total Protein 7.8 g/dL (6.6-8.7) 12/07/23 13:46 Albumin 4.5 g/dL (3.5-5.2) 12/07/23 13:46 Globulin 3.3 g/dL (1.3-4.6) 12/07/23 13:46 All radiology interpretation(s) finalized by discharge Discharge Plan Discharge Patient Disposition: Admitted As Inpatient Clinical Impression: Acute appendicitis Condition: Stable Prescriptions: No Action ibuprofen 200 mg capsule 200 mg PO Q6H PRN (Reason: Pain) mecobalamin (vitamin B12) 1,000 mcg tablet,chewable 1,000 mcg PO DAILY Qty: 60 0RF fentanyl 50 mcg/hr patch 72 hour 50 mcg transdermal Q3D Zyrtec 10 mg Tablet 10 mg PO DAILY PRN (Reason: ALLERGIES) hydrocodone-acetaminophen 10-325 mg tablet 1 tab PO QID PRN (Reason: Pain) Aspir-81 81 mg Tablet,Delayed Release (Dr/Ec) 81 mg PO DAILY pregabalin 25 mg capsule 25 mg PO TID Referrals: Macey Ackerman MD [Primary Care Provider] - Coding Level of Care Code ED Technical Support Director for Zach Crespo
--- NOTE | 2023-12-07 15:53 | CTR_ITS ---
PROCEDURE INFORMATION: Exam: CT Abdomen And Pelvis Without Contrast Exam date and time: 12/07/2023 3:57 PM Age: 58 years old Clinical indication: Abdominal pain; Flank; Right; Prior surgery; Surgery date: 6+ months; Surgery type: Left kidney, erin; Patient HX: Renal cell carcinoma, lymphoma; Additional info: Flank pain TECHNIQUE: Imaging protocol: Computed tomography of the abdomen and pelvis without contrast. Radiation optimization: All CT scans at this facility use at least one of these dose optimization techniques: automated exposure control; mA and/or kV adjustment per patient size (includes targeted exams where dose is matched to clinical indication); or iterative reconstruction. COMPARISON: CT kidney stone [id number] 03/11/2017 8:14 PM RADIATION DOSE METRICS: Total DLP (mGy-cm): 670 FINDINGS: Lungs: Lung bases are clear. No pleural effusion. Liver: Normal. No mass. Gallbladder and bile ducts: The gallbladder has been resected. Pancreas: Normal. No ductal dilation. Spleen: Normal. No splenomegaly. Adrenal glands: Normal. No mass. Kidneys and ureters: There is surgical absence of the left kidney. Stomach and bowel: Unremarkable. No obstruction. No mucosal thickening. Appendix: There is an appendicolith lying in the proximal aspect of the appendix in the appendix is abnormally enlarged and inflamed, measuring up to 14 mm in diameter. No abscess noted. Intraperitoneal space: Unremarkable. No free air. No significant fluid collection. Vasculature: Unremarkable. No abdominal aortic aneurysm. Lymph nodes: Unremarkable. No enlarged lymph nodes. Urinary bladder: Unremarkable as visualized. Reproductive: The prostate gland is abnormally enlarged. Bones/joints: Unremarkable. No acute fracture. Soft tissues: Unremarkable. CT/CT kidney stone [id number] IMPRESSION: 1. Acute appendicitis with no abscess or rupture 2. Prostate enlargement
--- NOTE | 2023-12-07 16:21 | XR_ITS ---
WS: [id number] XR chest 1V portable [id number] REASON FOR EXAM: Preop FINDINGS: Mild tortuosity of the thoracic aorta. Normal heart size. Calcified granulomas disease in both hemithoraces. No acute or subacute pulmonary parenchymal or pleural abnormality. Bony thorax intact without significant focal abnormality. IMPRESSION: No significant cardiopulmonary abnormality.
--- NOTE | 2023-12-07 16:53 | ECG_ITS ---
[facility] Test Date: 2023-12-07 Pat Name: Amandeep Velásquez Department: Room: Gender: Male Complaint Evaluation Supervisor: : 1965 Requested By: Javon Castellanos Order Number: [id number] Chucho MD: Edgar Cook M.D. Measurements Intervals [place] Rate: 93 P: 38 W[place]: 169 QRS: -26 QRSD: 107 T: 34 QT: 356 QTc: 444 Interpretive Statements SINUS RHYTHM BORDERLINE LEFT AXIS DEVIATION [QRS AXIS < -20] Compared to ECG 04/27/2021 01:35:41 No significant changes Electronically Signed On 12-07-2023 23:09:01 [employer] FUNCTIONAL ANALYST by Edgar Cook M.D. [id number]
[2023-12-07] MEDS: sodium chloride 0.9% 1,000 ML 999 ML IV (16:57)
[2023-12-07 16:58] LABS: Add Urine Microscopic? YES; Bilirubin Urine Neg (Negative); Blood Urine 2+ (Negative); Glucose Urine UA Norm (Normal); Ketones Urine Negative (Negative); Leukocyte Esterase Urine Trace (Negative); Nitrate Urine Negative (Negative); Protein Urine Neg (Negative); Specific Gravity, Urine 1.015 (1.005-1.030); Urine Appearance Clear (CLEAR); Urine Color Yellow (Yellow); Urobilinogen Urine Norm (Negative); pH Urine 5 (5-7)
[2023-12-07] MEDS: ondansetron 2 mg/ML SDV 2 mL 4 MG IVP ×2 (16:58→19:05)
[2023-12-07 16:59] LABS: Add Urine Culture? No; Bacteria Urine TRACE /hpf; Mucus Urine TRACE /hpf; RBC Urine 0-4 /hpf (0-2); Squamous Epithelial Cell Urine 0-4 /hpf (0-5); WBC Urine 0-4 /hpf (0-5)
[2023-12-07] MEDS: ketorolac 30 mg/mL INJ IVP (16:59)
[2023-12-07] MEDS: morphine 4 mg/mL SDV 1 mL IVP (17:00)
[2023-12-07] MEDS: piperacillin-tazobactam 3.375 GM in sodium chloride 0.9% (plus) 50 ML IV (17:03)
--- NOTE | 2023-12-07 17:07 | PM.HP ---
Providers/Chief Complaint Primary Care Provider: Macey Ackerman MD Chief Complaint: sent from back pain History of Present Illness Amandeep Velásquez Jr is a 58 year old male with significant past medical history including left kidney cancer status post nephrectomy and hematologic malignancy now in remission. Presents with 3 days of right lower quadrant pain associated with chills no fever, per patient report pain was initially intermittent but has become constant more located in the right lower quadrant. Denies nausea vomit no changes in bowel movements. White count was normal in the ED but CT scan of the abdomen pelvis show evidence of acute appendicitis without rupture. Review of Systems General: Reports: 10 or more systems reviewed and unremarkable except in HPI and below Medications/Allergies Home Medications Medication Instructions Recorded Confirmed Last Taken Type fentanyl 50 mcg/hr transdermal 50 mcg transdermal Q3D 04/27/21 12/07/23 04/25/21 12:00 History patch ibuprofen 200 mg capsule 200 mg PO Q6H PRN Pain 08/15/21 12/07/23 Unknown History mecobalamin (vitamin B12) 1,000 1,000 mcg PO DAILY #60 tabs 09/05/21 12/07/23 12/07/23 Rx mcg chewable tablet aspirin 81 mg tablet,delayed 81 mg PO DAILY 12/07/23 12/07/23 12/07/23 History release cetirizine 10 mg tablet (Zyrtec) 10 mg PO DAILY PRN ALLERGIES 12/07/23 12/07/23 Unknown History hydrocodone 10 mg-acetaminophen 1 tab PO QID PRN Pain 12/07/23 12/07/23 Unknown History 325 mg tablet pregabalin 25 mg capsule 25 mg PO TID 12/07/23 12/07/23 12/07/23 History Allergies Allergy/AdvReac Type Severity Reaction Status Date / Time rituximab [From Rituxan] Allergy Mild unk Verified 12/07/23 12:52 Iodinated Contrast Media Allergy ADR-Itching Verified 12/07/23 12:52 vancomycin Allergy ALGY-Redness Verified 12/07/23 12:52 of Skin PFSH Acute PFSH: Medical History Polyarthritis Port-A-Cath in place Neuropathy Renal cell cancer Status post left nephrectomy Non Hodgkin's lymphoma Surgical History S/P right knee arthroscopy History of cholecystectomy Family History Mother Cancer Hypertension Hyperlipidemia Rheumatoid arthritis Father Diabetes Denies family history of Lupus Heart attack Stroke Social History Smoking and tobacco/nicotine status: never used tobacco/nicotine Alcohol intake: current Alcohol intake frequency: few times a week Alcohol type: beer Substance/Drug Use: never Housing: House Vitals/I&O/Wt Last Vital Signs Temp 98.0 F 12/07/23 12:53 Pulse 103 H 12/07/23 15:12 Resp 18 12/07/23 17:00 BP 120/92 12/07/23 15:12 Pulse Ox 98 12/07/23 17:00 O2 Del Method Room Air 12/07/23 15:12 Weight last 48 hrs Weight 195 lb Physical Exam Narrative: General : Patient is well developed , no acute distress, oriented x3 Head : Normal cephalic, a-traumatic. Nose : Mucous membranes are without erythema. Lungs : Equal chest rise bilaterally, no use of accessory muscles, trachea is midline. CV : Rate and rhythm are normal. Abdomen : Abdomen is soft, tender to palpation in the right lower quadrant, no peritoneal signs, nondistended Extremities : No edema. Upper extremities are normal bilaterally. Back : non-tender to palpation, no CVA tenderness. Data 12/07/23 13:46 12/07/23 13:46 A&P Assessment and plan (1) Acute appendicitis: Plan 58-year-old male with acute appendicitis diagnosed by clinical exam and imaging, laparoscopic appendectomy is indicated. I have discussed all the risk benefits of the procedure including the risk of bleeding, infection, need for additional interventions, damage to surrounding structures including the ureter which is especially relevant in this patient due to only having 1 kidney, intra-abdominal visceral injury during entry due to history of previous surgeries and significant instrumentation of the abdomen need for additional surgical interventions, , intra-abdominal abscess. Patient shows understanding and acknowledged the risk of the procedure and wishes to proceed. Attestations Medical Necessity Statement*: Patient will likely be discharged after surgery today. Coding Level of Care Code Acute Code for [facility] Diagnoses Acute appendicitis K35.80
--- NOTE | 2023-12-07 17:22 | P.ANESASSM_ITS ---
Pre-Anesthetic Assessment Height/Weight: Height 1.88 m Weight 88.451 kg Temp Pulse Resp BP Pulse Ox O2 Del Method 98.0 F 103 H 18 120/92 98 Room Air 12/07/23 12:53 12/07/23 15:12 12/07/23 17:00 12/07/23 15:12 12/07/23 17:00 12/07/23 15:12 Operation Date: 12/07/23 17:30 Proposed Procedures p Laparoscopic Appendectomy(Not Applicable) - Gianni Guerrero MD Familial anesthetic complications: None Was Beta Kole taken within 24 hours: N/A Was Clonidine taken within 24 hours: N/A Last intake: 9am small pecan twirl, coffee 11am Social Alcohol and No tobacco Exam alert, oriented x 3, clear to auscultation bilaterally and regular rate & rhythm Airway Submandibular: within normal limits Cervical ROM: within normal limits Mallampati: Class II Dentition: chipped Comments: Comments: Poor dentition History/ROS No significant history except as noted and No significant complaints Pulmonary Sleep Apnea CV/HEM None reported Enlarged prostate Kidney cancer s/p nephrectomy Hepatic None reported GI None reported Acute appendicitis Metabolic None reported Musc/skel Lower Back Pain Neuropsych Neuropathy Anesthetic Plan ASA status: 3E Anesthesia: Anesthesia Evaluation and General Risk of > 500 ml blood loss (7ml/kg in children): No Other Pertinent Information Fentanyl patch left hip Medications/Allergies Home Medications Medication Instructions Recorded Confirmed Last Taken Type fentanyl 50 mcg/hr transdermal 50 mcg transdermal Q3D 04/27/21 12/07/23 04/25/21 12:00 History patch ibuprofen 200 mg capsule 200 mg PO Q6H PRN Pain 08/15/21 12/07/23 Unknown History mecobalamin (vitamin B12) 1,000 1,000 mcg PO DAILY #60 tabs 09/05/21 12/07/23 12/07/23 Rx mcg chewable tablet aspirin 81 mg tablet,delayed 81 mg PO DAILY 12/07/23 12/07/23 12/07/23 History release cetirizine 10 mg tablet (Zyrtec) 10 mg PO DAILY PRN ALLERGIES 12/07/23 12/07/23 Unknown History hydrocodone 10 mg-acetaminophen 1 tab PO QID PRN Pain 12/07/23 12/07/23 Unknown History 325 mg tablet pregabalin 25 mg capsule 25 mg PO TID 12/07/23 12/07/23 12/07/23 History Allergies Allergy/AdvReac Type Severity Reaction Status Date / Time rituximab [From Rituxan] Allergy Mild unk Verified 12/07/23 12:52 Iodinated Contrast Media Allergy ADR-Itching Verified 12/07/23 12:52 vancomycin Allergy ALGY-Redness Verified 12/07/23 12:52 of Skin Current Medications Generic Name Dose Route Start Last Admin Trade Name Debra PRN Reason Stop Dose Admin Sodium Chloride 1,000 mls @ 999 mls/hr 12/07/23 16:25 12/07/23 16:57 Sodium Chloride 0.9% IV 12/07/23 17:25 999 mls/hr .Q1H1M ONE Administration PFSH Anesthesia Medical History Polyarthritis Port-A-Cath in place Neuropathy Renal cell cancer Status post left nephrectomy Non Hodgkin's lymphoma Surgical History S/P right knee arthroscopy History of cholecystectomy Family History Mother Cancer Hypertension Hyperlipidemia Rheumatoid arthritis Father Diabetes Denies family history of Lupus Heart attack Stroke Social History Smoking and tobacco/nicotine status: never used tobacco/nicotine Alcohol intake: current Alcohol intake frequency: few times a week Alcohol type: beer Substance/Drug Use: never Housing: House Data Anesthesia 12/07/23 13:46 12/07/23 13:46 Short CBC 12/07/23 Range/Units 13:46 WBC 8.36 (3.29-11.43) 10^3/uL Hgb 16.60 (11.27-16.99) g/dL Hct 46.5 (37-53) % MCV 89.6 (82-101) fl Plt Count 186 (157-399) 10^3/cmm Neut % (Auto) 77.4 % Neut # (Auto) 6.47 (1.8-7.7) 10^3/uL BMP 12/07/23 13:46 Sodium 138 Potassium 4.5 Chloride 102 Carbon Dioxide 24 BUN 15 Creatinine 1.0 Glucose 101 Calcium 9.9 Liver Function 12/07/23 Range/Units 13:46 Total Bilirubin 0.7 (0.15-1.2) mg/dL AST 19 (0-40) U/L ALT 24 (0-41) U/L Alkaline Phosphatase 101 (40-130) U/L Albumin 4.5 (3.5-5.2) g/dL Urine 12/07/23 Range/Units 15:38 Urine Color Yellow (Yellow) Urine Appearance Clear (CLEAR) Urine pH 5 (5-7) Ur Specific [place] 1.015 (1.005-1.030) Urine Protein Neg (Negative) Urine Glucose (UA) Norm (Normal) Urine Ketones Negative (Negative) Urine Nitrate Negative (Negative) Urine Bilirubin Neg (Negative) Ur Leukocyte Esterase Trace H (Negative) Urine RBC 0-4 H (0-2) /hpf Urine WBC 0-4 H (0-5) /hpf Cardiac Studies: 2 No Data to Display
[2023-12-07] MEDS: lidocaine-epi 1% PF 1:200,000 30 mL SDV 10 ML INJECTION (18:29)
[2023-12-07] MEDS: BUPivacaine 0.5% INJ 10 mL INJECTION (18:30)
--- NOTE | 2023-12-07 18:49 | PM.OP ---
Operative Report Date of procedure: December 07, 2023 Pre-op diagnosis: Acute appendicitis Post-op diagnosis: Same Post-op findings: There was significant inflammation surrounding the appendix and the base of the appendix at the level of the cecum, there was significant periappendiceal fat stranding. Procedure done: Laparoscopic appendectomy Specimens removed/disposition: Appendix Surgeon: Gianni Guerrero MD Collaborative Teacher: CUAUHTEMOC OR Staff Estimated blood loss: 5 Complications: None apparent Brief History: 58-year-old male who presented with right lower quadrant pain and CT scan showing evidence of acute appendicitis, after discussion of all the risk and benefits of the operation we decided to proceed with laparoscopic appendectomy. Procedure: Patient was brought into the OR, he was placed in the supine position, general esthesia was given. The abdomen was prepped and draped in the usual sterile fashion. Timeout was conducted. The abdomen was accessed via a supraumbilical incision with open technique a 12 mm Zhang trocar was placed and fixed to the fascia with #0 Vicryl, initial laparoscopy was done and no evidence of visceral injury was noted. Additional 5 mm trocars were placed under direct visualization in the suprapubic and left lower quadrant position. The appendix was identified in the right lower quadrant, it was noted to be inflamed with significant periappendiceal fat inflammation, I proceeded to take down the mesoappendix from the tip of the appendix to the base using LigaSure, the appendix was noted to be inflamed and with very friable tissue, the excision was carried down all the way to the base of the appendix to identify an area of healthy tissue for the landing of the stapler. I then proceeded to transect the appendix at the level of the base using a 45 mm blue load Endo NUHA stapler. Staple line appeared to be intact and hemostatic after transection. The specimen was retrieved through the umbilical port site using the Endo Catch bag. No significant bleeding was noted around the area of dissection. The umbilical trocar site was closed with direct visualization with a Constantin-Taty suture passer and 0 Vicryl. The suprapubic trocar was then removed under direct visualization the left lower quadrant trocar was used to evacuate the pneumoperitoneum and subsequently removed. Wounds were closed in layers using #4 Monocryl for the skin and Dermabond was applied. At the end of the procedure all counts were correct, the patient tolerated well the procedure was extubated and transferred to PACU in stable condition.
[2023-12-07] MEDS: HYDROcodone-acetaminophen 10-325 mg Tablet 1 TAB PO (19:57)
== END 2023-12-07 20:35 | disposition home or self-care (01) ==
LOC: ER 16:33 → OR 17:02
PROVIDERS: Physician Assistant; Emergency Provider Family Medicine; PCP Family Medicine; Visit Provider Surgery
PROC: 0DTJ4ZZ Resection of Appendix, Percutaneous Endoscopic Approach (ICD-10-PCS; CPT 44970; principal; 2023-12-07 17:30)
DX: K35.80 Unspecified acute appendicitis (principal); K66.0 Peritoneal adhesions (postprocedural) (postinfection); Z85.528 Personal history of other malignant neoplasm of kidney; Z90.5 Acquired absence of kidney; G47.30 Sleep apnea, unspecified
CPT/HCPCS: 44970; 36415; 71045; 74176; 80053; 81001; 85025; 88304; 93005; J0131; J1100; J1170; J1885; J2270; J2405; J2543; J2704; J3010; J3490; J7030

== ENCOUNTER 2024-01-05 14:31 | Emergency (ER) | payer BC, SELFPAY ==
[2024-01-05 14:38] VITALS: BP 130/84; PULSE 78; RESP 16; TEMP 36.3; O2SAT 96; BMI 24.3
--- NOTE | 2024-01-05 16:26 | XRR_ITS ---
PROCEDURE INFORMATION: Exam: XR Chest Exam date and time: 01/05/2024 4:43 PM Age: 58 years old Clinical indication: Cough and dyspnea; Additional info: Dyspnea/cough TECHNIQUE: Imaging protocol: Radiologic exam of the chest. Views: 1 view. COMPARISON: CR XR chest 1V portable [id number] 12/07/2023 4:25 PM FINDINGS: Lungs: There is subtle asymmetric coarse granular opacity in the lower left lung which is new since 12/07/2023. Pleural spaces: There is no pleural effusion or pneumothorax. Heart/Mediastinum: Cardiomediastinal contours are unremarkable. Bones/joints: Bones are unremarkable. XR/XR chest 1V portable [id number] IMPRESSION: Subtle asymmetric opacity in the left lower lung. Possible low-grade infection.
--- NOTE | 2024-01-05 16:30 | CTR_ITS ---
PROCEDURE INFORMATION: Exam: CT Abdomen And Pelvis Without Contrast Exam date and time: 01/05/2024 5:39 PM Age: 58 years old Clinical indication: Abdominal pain; Localized; Upper; Prior surgery; Surgery date: 6+ months; Surgery type: Appy 30 days ago. Purnima and kidney removal years ago TECHNIQUE: Imaging protocol: Computed tomography of the abdomen and pelvis without contrast. Radiation optimization: All CT scans at this facility use at least one of these dose optimization techniques: automated exposure control; mA and/or kV adjustment per patient size (includes targeted exams where dose is matched to clinical indication); or iterative reconstruction. COMPARISON: CT kidney stone [id number] 12/07/2023 3:57 PM RADIATION DOSE METRICS: Total DLP (mGy-cm): 664 FINDINGS: Lungs: Lung bases are clear. Liver: The liver is normal. Gallbladder and bile ducts: The gallbladder is absent. There is no intrahepatic or extrahepatic bile duct dilation. Pancreas: There is mild atrophy of the pancreas. Spleen: The spleen is mildly enlarged. Adrenal glands: The adrenal glands are unremarkable. Kidneys and ureters: The right kidney and ureter are unremarkable. Left nephrectomy. Stomach and bowel: The stomach is decompressed, preventing meaningful evaluation of wall thickness. The small bowel is nondilated. The colon is unremarkable. Appendix: The appendix is absent. No apparent surgical complications. No fluid collection. Intraperitoneal space: There is no free air or significant intraperitoneal free fluid. Vasculature: There is mild aortic atherosclerotic disease. Lymph nodes: There is no lymphadenopathy in the retroperitoneum, mesentery, pelvis or inguinal regions. Urinary bladder: The urinary bladder is decompressed, preventing meaningful evaluation of wall thickness. Reproductive: The prostate and seminal vesicles are unremarkable. Bones/joints: There is moderate degenerative disease in the lumbar spine. The pelvis and hips are unremarkable. Soft tissues: There is focal edema at the umbilicus involving the subcutaneous fat, abdominal wall and adjacent intra-abdominal fat. No hernia. CT/CT abdomen pelvis wo con [id number] IMPRESSION: 1. Appendectomy. No sign of residual inflammation or abscess. 2. Focal edema at the umbilicus consistent with surgical changes related to abdominal port site. Cellulitis not excluded. 3. Incidental findings above.
--- NOTE | 2024-01-05 16:30 | ECG_ITS ---
[facility] Test Date: 2024-01-05 Pat Name: Amandeep Velásquez Department: Room: Gender: Male Mold Carrier: : 1965 Requested By: Javon Castellanos Order Number: [id number] Chucho MD: Kacy Monet M.D. Measurements Intervals [place] Rate: 69 P: 53 SD: 178 QRS: 16 QRSD: 114 T: 49 QT: 382 QTc: 412 Interpretive Statements SINUS RHYTHM MODERATE INTRAVENTRICULAR CONDUCTION DELAY [110+ ms QRS DURATION] Compared to ECG 12/07/2023 16:53:25 Intraventricular conduction delay now present Electronically Signed On 01-05-2024 18:31:06 [employer]ATE [employer] PRESS LABORER by Kacy Monet M.D. [id number]
[2024-01-05 16:46] VITALS: BP 123/74; PULSE 75; RESP 16; O2SAT 96
--- NOTE | 2024-01-05 17:19 | ED_ITS ---
Documented by User: Javon Kapadia DO 01/12/24 09:55 HPI - Back Pain/Injury 2 General: Chief Complaint: Back Pain/Injury Stated Complaint: lower back pain Time Seen by Provider: 01/05/24 16:25 Source: patient Mode of arrival: ambulatory History of Present Illness: 58-year-old male presents emergency room complaining of several days of left flank pain left lower quadrant pain. No fever sweats chills no dysuria urgency or frequency he previously had a left renal cancer and had a left nephrectomy. No history of diverticulitis denies any recent diarrhea melena hematemesis coffee-ground emesis hematochezia. He previously had has had an appendectomy. No vomiting or diarrhea no rash. MD elicited complaint: back pain Pertinent past history: prior back pain Onset (ago): day(s) Severity: mild Location: left flank Exacerbating factors: none Relieving factors: none Associated symptoms: Reports abdominal pain; Deny arthralgias, chills, change in bowel habits, difficulty walking, dysuria, fatigue, fecal incontinence, fever(s), hematuria, myalgias, nausea, numbness, syncope, tingling/numbness/burning, urinary frequency, urinary urgency, vomiting or weakness Review of Systems 2 Const: Denies: fever(s), chills or fatigue Card: Denies: chest pain or syncope Resp: Denies: dyspnea, non-productive cough or wheezing GI: Reports: abdominal pain; Denies: nausea, vomiting, fecal incontinence or change in bowel habits : Denies: dysuria, urinary frequency, urinary urgency or hematuria Musc: Denies: neck pain or back pain Skin/Breast: Denies: rash Neuro: Denies: difficulty walking PFSH ED 2 PFSH: Medical History Polyarthritis Port-A-Cath in place Neuropathy Renal cell cancer Status post left nephrectomy Non Hodgkin's lymphoma Surgical History History of laparoscopic appendectomy 12/07/23 Dr Guerrero S/P right knee arthroscopy History of cholecystectomy Family History Mother Cancer Hypertension Hyperlipidemia Rheumatoid arthritis Father Diabetes Denies family history of Lupus Heart attack Stroke Social History Smoking and tobacco/nicotine status: never used tobacco/nicotine Alcohol intake: current Alcohol intake frequency: few times a week Alcohol type: beer Substance/Drug Use: never Housing: House Physical Exam 2 Const: COMMON NORMALS: no acute distress GENERAL APPEARANCE: cooperative and comfortable ORIENTATION/CONSCIOUSNESS: Yes awake, Yes oriented to person, Yes oriented to place and Yes oriented to time HENMT: COMMON NORMALS: normocephalic, atraumatic and hearing grossly normal bilaterally HEAD & SCALP: normocephalic and atraumatic Resp: COMMON NORMALS: normal respiratory effort, No retractions, No use of accessory muscles and clear to auscultation bilaterally AUSCULTATION: clear to auscultation bilaterally Cardio: COMMON NORMALS: regular rate, regular rhythm and No murmurs present (Cardio) RATE: regular rate RHYTHM: regular rhythm GI: COMMON NORMALS: Soft to palpation and No hepatosplenomegaly present A USCULTATION: Yes normoactive bowel sounds PALPATION: Yes Soft to palpation, No Tenderness to palpation present (GI), No Guarding due to palpation present (GI) and Yes No hepatosplenomegaly present Extremity: COMMON NORMALS: normal to inspection, capillary refill normal, no clubbing, cyanosis or edema, no calf tenderness and no pedal edema Neuro: SENSORIUM/ORIENTATION: Yes oriented to person, Yes oriented to place and Yes oriented to time Skin: COMMON NORMALS: no rashes or lesions noted GENERAL SKIN EXAM: no rashes or lesions noted Course 2 Vital Signs: Vital signs: Vital Signs Temperature 97.4 F L 01/05/24 14:38 Pulse Rate 76 01/05/24 18:19 Respiratory Rate 16 01/05/24 18:19 Blood Pressure 113/71 01/05/24 18:50 Pulse Oximetry 94 01/05/24 18:19 Oxygen Delivery Me thod Room Air 01/05/24 18:19 MDM - Back Pain/Injury Medical Decision Making Care signed out to Dr. Payne at change of shift. See final notes for diagnosis and disposition. Patient had lab work performed included CBC CMP and urinalysis all of which was essentially benign. Chest x-ray showed asymmetric opacity in the left lower lung, abdomen pelvis CT was negative for acute findings. Patient be discharged home to follow-up with his PCP for further evaluation and treatment. Medical Records I reviewed the patient's medical records. Labs I reviewed the patient's lab results. 01/05/24 16:58 01/05/24 16:58 Radiology Impressions Chest X-Ray 01/05/24 16:26 IMPRESSION: Subtle asymmetric opacity in the left lower lung. Possible low-grade infection. Abdomen/Pelvis CT 01/05/24 16:30 IMPRESSION: 1. Appendectomy. No sign of residual inflammation or abscess. 2. Focal edema at the umbilicus consistent with surgical changes related to abdominal port site. Cellulitis not excluded. 3. Incidental findings above. Laboratory Results WBC 8.85 10^3/uL (3.29-11.43) 01/05/24 16:58 RBC 4.60 10^6/uL (3.85-5.65) 01/05/24 16:58 Hgb 14.50 g/dL (11.27-16.99) 01/05/24 16:58 Hct 41.8 % (37-53) 01/05/24 16:58 MCV 90.9 fl (82-101) 01/05/24 16:58 MCH 31.5 pg (27-33) 01/05/24 16:58 MCHC 34.7 g/dL (30-55) 01/05/24 16:58 RDW 13.3 % (12.1-15.1) 01/05/24 16:58 Plt Count 168 10^3/cmm (157-399) 01/05/24 16:58 MPV 10.4 fL (7.4-10.4) 01/05/24 16:58 Neut % (Auto) 76.2 % 01/05/24 16:58 Lymph % (Auto) 13.6 % 01/05/24 16:58 [place] % (Auto) 7.1 % 01/05/24 16:58 Eos % (Auto) 2.7 % 01/05/24 16:58 Baso % (Auto) 0.2 % 01/05/24 16:58 Neut # (Auto) 6.74 10^3/uL (1.8-7.7) 01/05/24 16:58 Lymph # (Auto) 1.2 10^3/uL (0.8-4.8) 01/05/24 16:58 [place] # (Auto) 0.6 10^3/uL (0.2-0.9) 01/05/24 16:58 Eos # (Auto) 0.2 10^3/uL (0.0-0.8) 01/05/24 16:58 Baso # (Auto) 0.0 10^3/uL (0.0-0.1) 01/05/24 16:58 Nucleated RBC % (auto) 0 % 01/05/24 16:58 Nucleated RBCs # 0.0 /100WBC 01/05/24 16:58 Sodium 140 mmol/L (136-145) 01/05/24 16:58 Potassium 4.4 mmol/L (3.5-5.1) 01/05/24 16:58 Chloride 105 mmol/L (98-107) 01/05/24 16:58 Carbon Dioxide 25 mmol/L (22-29) 01/05/24 16:58 Anion Gap 14.4 (5-19) 01/05/24 16:58 BUN 13 mg/dL (6-20) 01/05/24 16:58 Creatinine 0.9 mg/dL (0.7-1.2) 01/05/24 16:58 GFR Calculation 86.4 mL/min (90-130) L 01/05/24 16:58 Glucose 79 mg/dL (65-115) 01/05/24 16:58 Calculated Osmolality 289 mOsm/kg (285-295) 01/05/24 16:58 Calcium 9.3 mg/dL (8.5-10.5) 01/05/24 16:58 Total Bilirubin 0.7 mg/dL (0.15-1.2) 01/05/24 16:58 AST 17 U/L (0-40) 01/05/24 16:58 ALT 14 U/L (0-41) 01/05/24 16:58 Alkaline Phosphatase 80 U/L (40-130) 01/05/24 16:58 Total Protein 6.8 g/dL (6.6-8.7) 01/05/24 16:58 Albumin 4.4 g/dL (3.5-5.2) 01/05/24 16:58 Globulin 2.4 g/dL (1.3-4.6) 01/05/24 16:58 Urine Color Yellow (Yellow) 01/05/24 16:15 Urine Appearance Clear (CLEAR) 01/05/24 16:15 Urine pH 5 (5-7) 01/05/24 16:15 Ur Specific [place] 1.020 (1.005-1.030) 01/05/24 16:15 Urine Protein Neg (Negative) 01/05/24 16:15 Urine Glucose (UA) Norm (Normal) 01/05/24 16:15 Urine Ketones Negative (Negative) 01/05/24 16:15 Urine Blood Neg (Negative) 01/05/24 16:15 Urine Nitrate Negative (Negative) 01/05/24 16:15 Urine Bilirubin Neg (Negative) 01/05/24 16:15 Urine Urobilinogen Norm mg/dL (Negative) 01/05/24 16:15 Ur Leukocyte Esterase Negative (Negative) 01/05/24 16:15 Discharge Plan Discharge Patient Disposition: Home Clinical Impression: Abdominal pain, acute, left lower quadrant, Acute abdominal pain in left flank Condition: Stable Prescriptions: No Action mecobalamin (vitamin B12) 1,000 mcg tablet,chewable 1,000 mcg PO DAILY Qty: 60 0RF fentanyl 50 mcg/hr patch 72 hour 50 mcg transdermal Q3D Zyrtec 10 mg Tablet 10 mg PO DAILY PRN (Reason: ALLERGIES) aspirin 81 mg Tablet,Delayed Release (Dr/Ec) 81 mg PO DAILY pregabalin 25 mg capsule 25 mg PO TID meloxicam 15 mg tablet 15 mg PO DAILY Qty: 5 0RF amoxicillin-pot clavulanate 875-125 mg tablet 1 tab PO BID Qty: 14 0RF hydrocodone-acetaminophen 10-325 mg tablet 1 tab PO QID PRN (Reason: Pain) 10 Days Qty: 14 0RF Discharge Orders: Discharge ED (Routine); Ordered 01/05/24 Ordered By: Donte Payne Referrals: Macey Ackerman MD [Primary Care Provider] - 1 week Patient Instructions: Abdominal Pain (ED) Activity Restrictions/Additional Instructions: Your evaluation in the ER that which included blood work and urine did not show any acute abnormality that should cause with left sided abdominal pain. Your CT of your abdomen and pelvis was normal as well. Please follow-up with your family practice physician within next 7 to 10 days for further evaluation testing as needed. Coding Level of Care Code ED Corporate Wellness Coordinator for [facility] Documented by User: Donte Payne DO 01/05/24 23:07 HPI - Back Pain/Injury 2 General: Chief Complaint: Back Pain/Injury Stated Complaint: lower back pain Time Seen by Provider: 01/05/24 16:25 PFSH ED 2 PFSH: Medical History Polyarthritis Port-A-Cath in place Neuropathy Renal cell cancer Status post left nephrectomy Non Hodgkin's lymphoma Surgical History History of laparoscopic appendectomy 12/07/23 Dr Guerrero S/P right knee arthroscopy History of cholecystectomy Family History Mother Cancer Hypertension Hyperlipidemia Rheumatoid arthritis Father Diabetes Denies family history of Lupus Heart attack Stroke Social History Smoking and tobacco/nicotine status: never used tobacco/nicotine Alcohol intake: current Alcohol intake frequency: few times a week Alcohol type: beer Substance/Drug Use: never Housing: House Course 2 Vital Signs: Vital signs: Vital Signs Temperature 97.4 F L 01/05/24 14:38 Pulse Rate 76 01/05/24 18:19 Respiratory Rate 16 01/05/24 18:19 Blood Pressure 113/71 01/05/24 18:50 Pulse Oximetry 94 01/05/24 18:19 Oxygen Delivery Me thod Room Air 01/05/24 18:19 MDM - Back Pain/Injury Medical Decision Making Patient had lab work performed included CBC CMP and urinalysis all of which was essentially benign. Chest x-ray showed asymmetric opacity in the left lower lung, abdomen pelvis CT was negative for acute findings. Patient be discharged home to follow-up with his PCP for further evaluation and treatment. Labs 01/05/24 16:58 01/05/24 16:58 Radiology Impressions Chest X-Ray 01/05/24 16:26 IMPRESSION: Subtle asymmetric opacity in the left lower lung. Possible low-grade infection. Abdomen/Pelvis CT 01/05/24 16:30 IMPRESSION: 1. Appendectomy. No sign of residual inflammation or abscess. 2. Focal edema at the umbilicus consistent with surgical changes related to abdominal port site. Cellulitis not excluded. 3. Incidental findings above. Laboratory Results WBC 8.85 10^3/uL (3.29-11.43) 01/05/24 16:58 RBC 4.60 10^6/uL (3.85-5.65) 01/05/24 16:58 Hgb 14.50 g/dL (11.27-16.99) 01/05/24 16:58 Hct 41.8 % (37-53) 01/05/24 16:58 MCV 90.9 fl (82-101) 01/05/24 16:58 MCH 31.5 pg (27-33) 01/05/24 16:58 MCHC 34.7 g/dL (30-55) 01/05/24 16:58 RDW 13.3 % (12.1-15.1) 01/05/24 16:58 Plt Count 168 10^3/cmm (157-399) 01/05/24 16:58 MPV 10.4 fL (7.4-10.4) 01/05/24 16:58 Neut % (Auto) 76.2 % 01/05/24 16:58 Lymph % (Auto) 13.6 % 01/05/24 16:58 [place] % (Auto) 7.1 % 01/05/24 16:58 Eos % (Auto) 2.7 % 01/05/24 16:58 Baso % (Auto) 0.2 % 01/05/24 16:58 Neut # (Auto) 6.74 10^3/uL (1.8-7.7) 01/05/24 16:58 Lymph # (Auto) 1.2 10^3/uL (0.8-4.8) 01/05/24 16:58 [place] # (Auto) 0.6 10^3/uL (0.2-0.9) 01/05/24 16:58 Eos # (Auto) 0.2 10^3/uL (0.0-0.8) 01/05/24 16:58 Baso # (Auto) 0.0 10^3/uL (0.0-0.1) 01/05/24 16:58 Nucleated RBC % (auto) 0 % 01/05/24 16:58 Nucleated RBCs # 0.0 /100WBC 01/05/24 16:58 Sodium 140 mmol/L (136-145) 01/05/24 16:58 Potassium 4.4 mmol/L (3.5-5.1) 01/05/24 16:58 Chloride 105 mmol/L (98-107) 01/05/24 16:58 Carbon Dioxide 25 mmol/L (22-29) 01/05/24 16:58 Anion Gap 14.4 (5-19) 01/05/24 16:58 BUN 13 mg/dL (6-20) 01/05/24 16:58 Creatinine 0.9 mg/dL (0.7-1.2) 01/05/24 16:58 GFR Calculation 86.4 mL/min (90-130) L 01/05/24 16:58 Glucose 79 mg/dL (65-115) 01/05/24 16:58 Calculated Osmolality 289 mOsm/kg (285-295) 01/05/24 16:58 Calcium 9.3 mg/dL (8.5-10.5) 01/05/24 16:58 Total Bilirubin 0.7 mg/dL (0.15-1.2) 01/05/24 16:58 AST 17 U/L (0-40) 01/05/24 16:58 ALT 14 U/L (0-41) 01/05/24 16:58 Alkaline Phosphatase 80 U/L (40-130) 01/05/24 16:58 Total Protein 6.8 g/dL (6.6-8.7) 01/05/24 16:58 Albumin 4.4 g/dL (3.5-5.2) 01/05/24 16:58 Globulin 2.4 g/dL (1.3-4.6) 01/05/24 16:58 Urine Color Yellow (Yellow) 01/05/24 16:15 Urine Appearance Clear (CLEAR) 01/05/24 16:15 Urine pH 5 (5-7) 01/05/24 16:15 Ur Specific [place] 1.020 (1.005-1.030) 01/05/24 16:15 Urine Protein Neg (Negative) 01/05/24 16:15 Urine Glucose (UA) Norm (Normal) 01/05/24 16:15 Urine Ketones Negative (Negative) 01/05/24 16:15 Urine Blood Neg (Negative) 01/05/24 16:15 Urine Nitrate Negative (Negative) 01/05/24 16:15 Urine Bilirubin Neg (Negative) 01/05/24 16:15 Urine Urobilinogen Norm mg/dL (Negative) 01/05/24 16:15 Ur Leukocyte Esterase Negative (Negative) 01/05/24 16:15 All radiology interpretation(s) finalized by discharge Discharge Plan Discharge Patient Disposition: Home Clinical Impression: Abdominal pain, acute, left lower quadrant, Acute abdominal pain in left flank Condition: Stable Prescriptions: No Action mecobalamin (vitamin B12) 1,000 mcg tablet,chewable 1,000 mcg PO DAILY Qty: 60 0RF fentanyl 50 mcg/hr patch 72 hour 50 mcg transdermal Q3D Zyrtec 10 mg Tablet 10 mg PO DAILY PRN (Reason: ALLERGIES) aspirin 81 mg Tablet,Delayed Release (Dr/Ec) 81 mg PO DAILY pregabalin 25 mg capsule 25 mg PO TID meloxicam 15 mg tablet 15 mg PO DAILY Qty: 5 0RF amoxicillin-pot clavulanate 875-125 mg tablet 1 tab PO BID Qty: 14 0RF hydrocodone-acetaminophen 10-325 mg tablet 1 tab PO QID PRN (Reason: Pain) 10 Days Qty: 14 0RF Discharge Orders: Discharge ED (Routine); Ordered 01/05/24 Ordered By: Donte Payne Referrals: Macey Ackerman MD [Primary Care Provider] - 1 week Patient Instructions: Abdominal Pain (ED) Activity Restrictions/Additional Instructions: Your evaluation in the ER that which included blood work and urine did not show any acute abnormality that should cause with left sided abdominal pain. Your CT of your abdomen and pelvis was normal as well. Please follow-up with your family practice physician within next 7 to 10 days for further evaluation testing as needed. Coding Level of Care Code ED Corporate Wellness Coordinator for Zach Crespo
[2024-01-05 17:20] LABS: Add Urine Microscopic? NO; Charge for UA Resulting for Rev
[2024-01-05 17:21] VITALS: BP 123/74; PULSE 73; RESP 18; O2SAT 95
[2024-01-05 17:21] LABS: Urine Appearance Clear (CLEAR); Urine Color Yellow (Yellow)
[2024-01-05 17:22] LABS: Basophils % 0.2 %; Eosinophils # 0.2 10^3/uL (0.0-0.8); Eosinophils % 2.7 %; Hematocrit 41.8 % (37-53); Lymphocytes # 1.2 10^3/uL (0.8-4.8); Lymphocytes % 13.6 %; Mean Corpuscular HGB Conc 34.7 g/dL (30-55); Mean Corpuscular Hemoglobin 31.5 pg (27-33); Mean Corpuscular Volume 90.9 fl (82-101); Mean Platelet Volume 10.4 fL (7.4-10.4); Monocytes # 0.6 10^3/uL (0.2-0.9); Monocytes % 7.1 %; Neutrophils # 6.74 10^3/uL (1.8-7.7); Neutrophils % 76.2 %; Nucleated Red Blood Cells % 0 %; Platelet Count 168 10^3/cmm (157-399); Red Cell Distribution Width 13.3 % (12.1-15.1); White Blood Count 8.85 10^3/uL (3.29-11.43)
[2024-01-05 17:22] LABS: Bilirubin Urine Neg (Negative); Blood Urine Neg (Negative); Glucose Urine UA Norm (Normal); Ketones Urine Negative (Negative); Leukocyte Esterase Urine Negative (Negative); Nitrate Urine Negative (Negative); Protein Urine Neg (Negative); Urobilinogen Urine Norm (Negative); pH Urine 5 (5-7)
[2024-01-05 17:44] LABS: Alanine Aminotransferase 14 U/L (0-41); Albumin Level 4.4 g/dL (3.5-5.2); Alkaline Phosphatase 80 U/L (40-130); Anion Gap 14.4 (5-19); Aspartate Amino Transferase 17 U/L (0-40); Blood Urea Nitrogen 13 mg/dL (6-20); Calcium 9.3 mg/dL (8.5-10.5); Carbon Dioxide 25 mmol/L (22-29); Chloride 105 mmol/L (98-107); Creatinine Clr Calc Pharmacy 104.7415; Globulin 2.4 g/dL (1.3-4.6); Glomerular Filtration Rate 86.4 mL/min (90-130); Glucose 79 mg/dL (65-115); Osmolality Calculated 289 mOsm/kg (285-295); Potassium 4.4 mmol/L (3.5-5.1); Sodium 140 mmol/L (136-145); Total Bilirubin 0.7 mg/dL (0.15-1.2); Total Protein 6.8 g/dL (6.6-8.7)
[2024-01-05 18:19] VITALS: BP 115/73; PULSE 76; RESP 16; O2SAT 94
[2024-01-05 18:50] VITALS: BP 113/71
== END 2024-01-05 18:50 | disposition home or self-care (01) ==
PROVIDERS: Emergency Provider Family Medicine; PCP Family Medicine
DX: R10.32 Left lower quadrant pain (principal); Z79.82 Long term (current) use of aspirin; Z85.528 Personal history of other malignant neoplasm of kidney; Z85.72 Personal history of non-Hodgkin lymphomas
CPT/HCPCS: 36415; 71045; 74176; 80053; 81003; 85025; 93005; 99285

== ENCOUNTER 2024-03-31 13:13 | Outpatient (CLI) | payer BC, SELFPAY ==
--- NOTE | 2024-03-31 13:22 | CTR_ITS ---
PROCEDURE INFORMATION: Exam: CT Chest With Contrast; Diagnostic Exam date and time: 03/31/2024 1:57 PM Age: 58 years old Clinical indication: Condition or disease; Primary cancer: Kidney cancer skin hodgkins lymphoma; Prior surgery; Surgery date: 6+ months; Surgery type: Left kidney, appy, port; Additional info: Personal HX malignant neoplasm of kidney/abn weight loss/yong TECHNIQUE: Imaging protocol: Diagnostic computed tomography of the chest with contrast. Radiation optimization: All CT scans at this facility use at least one of these dose optimization techniques: automated exposure control; mA and/or kV adjustment per patient size (includes targeted exams where dose is matched to clinical indication); or iterative reconstruction. Contrast material: OMNI 350; Contrast volume: 100 ml; Contrast route: INTRAVENOUS (IV); COMPARISON: CT angio chest PE protcl [id number] 04/27/2021 2:53 AM RADIATION DOSE METRICS: Total DLP (mGy-cm): 452.86 FINDINGS: Lungs: Stable small pulmonary nodules including reference 3 mm left upper lobe nodule (series 4, image 13). No new nodules. No focal consolidation. Pleural spaces: Unremarkable. No pneumothorax. No pleural effusion. Heart: Unremarkable. No cardiomegaly. No pericardial effusion. Coronary arteries: No coronary artery calcifications. Lymph nodes: Unremarkable. No enlarged lymph nodes. Vasculature: Unremarkable. No aortic aneurysm. Gallbladder and bile ducts: Status post cholecystectomy. Kidneys and ureters: Status post left nephrectomy. Bones/joints: Unremarkable. No acute fracture. Soft tissues: Unremarkable. CT/CT chest w con* [id number] IMPRESSION: No evidence of metastatic disease in the chest.
[2024-03-31 14:11] LABS: Blood Urea Nitrogen 15 mg/dL (6-20); Glomerular Filtration Rate 68.5 mL/min (90-130)
[2024-03-31] MEDS: iohexol 350 mg/mL 500 mL Btl (per mL) IV (14:23)
== END 2024-03-31 13:14 | disposition home or self-care (01) ==
LOC: RAD 13:14
PROVIDERS: Radiology Diagnostic Radiology; PCP Family Medicine; Visit Provider Internal Medicine Medical Oncology
DX: Z08 Encounter for follow-up examination after completed treatment for malignant neoplasm (principal); Z85.528 Personal history of other malignant neoplasm of kidney
CPT/HCPCS: 71260; 82565; 84520; Q9967

== ENCOUNTER 2024-06-06 13:08 | Outpatient (CLI) | payer BC, SELFPAY ==
--- NOTE | 2024-06-06 13:21 | XR_ITS ---
WS: [id number] XR acute abdomen series [id number] REASON FOR EXAM: ABDOMINAL PAIN FINDINGS: No free air or retroperitoneal air. Postcholecystectomy clips in the right upper quadrant. Multiple surgical overlying the left mid abdomen are compatible with the history of left nephrectomy. There is small bowel gas with some distention of small bowel in the right lower abdomen. There appear s to be an elongated air-fluid level in the right lower abdomen on the upright view. There is one discrete calcification and several ill-defined more inferiorly in the right lower abdome n. These calcifications are shown to be within the appendiceal stump on a CT scan of the abdomen 2023 and 02/13/2017. The colon is not significantly distended. No significant calcification is noted. No mass is identified. Moderate changes of degenerative spondylosis in the lower lumbar spine. No focal bony abnormality of the lumbar spine or bony pelvis. XR/XR acute abdomen series [id number] IMPRESSION: Nonspecific bowel gas pattern with more small bowel gas than is the norm with s ome distention of small bowel in the right lower abdomen with an elongated air- fluid level. If the patient continues to have symptoms a CT scan of the abdomen and pelvis i s recommended.
== END 2024-06-06 13:09 | disposition home or self-care (01) ==
PROVIDERS: PCP Family Medicine; Visit Provider Family Medicine
DX: R10.9 Unspecified abdominal pain (principal); R14.0 Abdominal distension (gaseous)
CPT/HCPCS: 74022

== ENCOUNTER 2024-06-07 13:41 | Emergency (ER) | payer BC, SELFPAY ==
[2024-06-07 13:49] VITALS: BP 132/85; PULSE 75; RESP 18; TEMP 36.7; O2SAT 98
[2024-06-07 14:21] LABS: Basophils % 0.3 %; Eosinophils # 0.2 10^3/uL (0.0-0.8); Hematocrit 44.8 % (37-53); Lymphocytes % 16.2 %; Mean Corpuscular HGB Conc 34.8 g/dL (30-55); Mean Corpuscular Hemoglobin 32.7 pg (27-33); Mean Corpuscular Volume 93.9 fl (82-101); Mean Platelet Volume 10.3 fL (7.4-10.4); Monocytes # 0.5 10^3/uL (0.2-0.9); Monocytes % 7.8 %; Neutrophils # 4.29 10^3/uL (1.8-7.7); Neutrophils % 72.4 %; Nucleated Red Blood Cells % 0 %; Platelet Count 183 10^3/cmm (157-399); Red Blood Count 4.77 10^6/uL (3.85-5.65); Red Cell Distribution Width 13.3 % (12.1-15.1); White Blood Count 5.93 10^3/uL (3.29-11.43)
[2024-06-07 14:34] LABS: Alanine Aminotransferase 22 U/L (0-41); Albumin Level 4.4 g/dL (3.5-5.2); Alkaline Phosphatase 96 U/L (40-130); Anion Gap 16.6 (5-19); Aspartate Amino Transferase 24 U/L (0-40); Blood Urea Nitrogen 11 mg/dL (6-20); Calcium 9.4 mg/dL (8.5-10.5); Carbon Dioxide 24 mmol/L (22-29); Chloride 102 mmol/L (98-107); Globulin 2.7 g/dL (1.3-4.6); Glomerular Filtration Rate 86.4 mL/min (90-130); Glucose 92 mg/dL (65-115); Lipase 46 U/L (13-60); Osmolality Calculated 285 mOsm/kg (285-295); Potassium 4.6 mmol/L (3.5-5.1); Sodium 138 mmol/L (136-145); Total Bilirubin 0.9 mg/dL (0.15-1.2); Total Protein 7.1 g/dL (6.6-8.7)
--- NOTE | 2024-06-07 14:42 | CT_ITS ---
WS: [id number] CT ABDOMEN AND PELVIS WITH CONTRAST HISTORY: Lower abdominal pain. TECHNIQUE: Imaging performed of the abdomen and pelvis with IV contrast. Single phase imaging of the abdomen. Coronal and sagittal reformats are submitted. All CT scans at [facility] use at [facility] one of these dose optimization techniques: automated exposure control; mA and/or kV adjustment per patient size (includes targeted exams where dose is matched to clinical indication); or iterative re construction. IV CONTRAST: Omnipaque 350; 100 mL IV. Oral contrast: No DLP: 680.13 mGy.cm COMPARISON: 01/05/2024 Lower thorax: Small stable nodule since 12/07/2023 at the LEFT lung base. Heart is normal size. No hiat al hernia. Liver/biliary system: Normal size liver. There is moderate intrahepatic duct dilatation. Common bile duct is 5 mm. No obstructing calcifications. Gallbladder: Prior cholecystectomy. Pancreas: Normal size pancreas and pancreatic duct. No adjacent inflammation. Spleen: Mildly enlarged spleen at 14.3 cm in length. Similar to the prior study. Adrenal glands: Normal. Right kidney: Normal size kidney. Cortical cyst superior pole measures 6 mm. No solid mass or obstruc tion. Left kidney: Prior nephrectomy. No recurrent mass at the renal bed. Aorta: Mild atherosclerosis with no aneurysm. Lymphadenopathy: None. Free fluid: None. GI tract: Normal stomach. No small bowel obstruction. Prior appendectomy. There is a changing caliber of the a sending colon towards hepatic flexure. The more proximal colon is fluid-filled and slightly dilated although not obstructed. Very minimal wall thickening. This is a new finding and not identif ied on the prior recent CTs. Best seen on image 39 of series 3. Abdominal wall: Unremarkable abdominal wall. No hernia. Pelvis: Mild prostate enlargement. Bones: Degenerative disc disease at L5-S1 and L4-5. CT/CT abdomen pelvis w con* [id number] IMPRESSION: 1. Status post LEFT nephrectomy for renal cancer. No recurrent mass. 2. No ascites or adenopathy. 3. Very subtle change in caliber of the ascending colon towards hepatic flexur e. The more proximal segment is slightly more dilated and fluid-filled. There i s mild wall thickening. This could potentially represent a very early neoplasm versus spasm. Consider follow-up colonoscopy if that has not been performed. 4. Prior cholecystectomy. 5. Mild intrahepatic duct dilatation. This is probably on the basis of the cho lecystectomy. No mass at the pancreatic head. 6. Prostate enlargement.
--- NOTE | 2024-06-07 14:44 | ED_ITS ---
HPI - Abdominal Pain 2 General: Chief Complaint: Abdominal Pain Stated Complaint: abd pain Time Seen by Provider: 06/07/24 14:06 Source: patient Mode of arrival: ambulatory Limitations: no limitations History of Present Illness: 58-year-old male states been having some diffuse abdominal pain over the last 4 days. States its right-sided pain he rates it a 7 out of 10 denies any vomiting or diarrhea has had an appendectomy and a cholecystectomy in the past. Denies any fevers denies any dysuria. Associated Symptoms: Denies chills, diarrhea, fever(s), nausea and vomiting Review of Systems 2 Const: Denies: fever(s), chills, body aches or change in appetite ENMT: Denies: throat pain or dental pain Card: Denies: chest pain Resp: Denies: dyspnea GI: Reports: abdominal pain; Denies: nausea, vomiting or diarrhea Musc: Denies: neck pain or back pain Skin/Breast: Denies: rash Neuro: Denies: headache(s) PFSH ED 2 PFSH: Medical History Polyarthritis Port-A-Cath in place Neuropathy Renal cell cancer Status post left nephrectomy Non Hodgkin's lymphoma Surgical History History of laparoscopic appendectomy 12/07/23 Dr Guerrero S/P right knee arthroscopy History of cholecystectomy Family History Mother Cancer Hypertension Hyperlipidemia Rheumatoid arthritis Father Diabetes Denies family history of Lupus Heart attack Stroke Social History Smoking and tobacco/nicotine status: never used tobacco/nicotine Alcohol intake: current Alcohol intake frequency: few times a week Alcohol type: beer Substance/Drug Use: never Housing: House Physical Exam 2 Const: COMMON NORMALS: no acute distress, patient oriented x3 and healthy appearing HENMT: COMMON NORMALS: normocephalic and atraumatic HEAD & SCALP: n ormocephalic and atraumatic Eye: COMMON NORMALS: conjunctivae normal CONJUNCTIVA: Yes conjunctivae normal Neck/C-Spine: COMMON NORMALS: full ROM and supple Chest: COMMONS NORMALS: normal inspection of the chest Resp: COMMON NORMALS: normal respiratory effort Cardio: COMMON NORMALS: regular rate, regular rhythm and No murmurs present (Cardio) RATE: regular rate RHYTHM: regular rhythm GI: COMMON NORMALS: Normal to inspection, nondistended, normoactive bowel sounds present, Soft to palpation and no masses PALPATION: Yes Soft to palpation OTHER: Diffuse mild tenderness Extremity: COMMON NORMALS: normal to inspection and full ROM Neuro: COMMON NORMALS: patient oriented x3, moves all extremities and no focal motor deficits Psych: COMMON NORMALS: mental status grossly normal, Normal thought process present and cooperative THOUGHT PROCESS: Normal thought process present Skin: COMMON NORMALS: no rashes or lesions noted and no wounds GENERAL SKIN EXAM: no rashes or lesions noted Course 2 Vital Signs: Vital signs: Vital Signs Temperature 98.0 F 06/07/24 13:49 Pulse Rate 75 06/07/24 13:49 Respiratory Rate 18 06/07/24 13:49 Blood Pressure 132/85 06/07/24 13:49 Pulse Oximetry 98 06/07/24 13:49 Oxygen Delivery Me thod Room Air 06/07/24 13:49 MDM - Abdominal Pain Medical Decision Making Patient presents here with abdominal pain did inform him CT findings of some thickening in his bowel informed he needs an outpatient colonoscopy we will get him follow-up with surgery blood work imaging here is otherwise normal. Medical Records I reviewed the patient's medical records. Lab Data I reviewed the patient's lab results. 06/07/24 14:11 06/07/24 14:11 Labs/Radiology: Radiology Impressions Abdomen/Pelvis CT 06/07/24 14:42 IMPRESSION: 1. Status post LEFT nephrectomy for renal cancer. No recurrent mass. 2. No ascites or adenopathy. 3. Very subtle change in caliber of the ascending colon towards hepatic flexure. The more proximal segment is slightly more dilated and fluid-filled. There is mild wall thickening. This could potentially represent a very early neoplasm versus spasm. Consider follow-up colonoscopy if that has not been performed. 4. Prior cholecystectomy. 5. Mild intrahepatic duct dilatation. This is probably on the basis of the cholecystectomy. No mass at the pancreatic head. 6. Prostate enlargement. Laboratory Results WBC 5.93 10^3/uL (3.29-11.43) 06/07/24 14:11 RBC 4.77 10^6/uL (3.85-5.65) 06/07/24 14:11 Hgb 15.60 g/dL (11.27-16.99) 06/07/24 14:11 Hct 44.8 % (37-53) 06/07/24 14:11 MCV 93.9 fl (82-101) 06/07/24 14:11 MCH 32.7 pg (27-33) 06/07/24 14:11 MCHC 34.8 g/dL (30-55) 06/07/24 14:11 RDW 13.3 % (12.1-15.1) 06/07/24 14:11 Plt Count 183 10^3/cmm (157-399) 06/07/24 14:11 MPV 10.3 fL (7.4-10.4) 06/07/24 14:11 Neut % (Auto) 72.4 % 06/07/24 14:11 Lymph % (Auto) 16.2 % 06/07/24 14:11 [place] % (Auto) 7.8 % 06/07/24 14:11 Eos % (Auto) 3.0 % 06/07/24 14:11 Baso % (Auto) 0.3 % 06/07/24 14:11 Neut # (Auto) 4.29 10^3/uL (1.8-7.7) 06/07/24 14:11 Lymph # (Auto) 1.0 10^3/uL (0.8-4.8) 06/07/24 14:11 [place] # (Auto) 0.5 10^3/uL (0.2-0.9) 06/07/24 14:11 Eos # (Auto) 0.2 10^3/uL (0.0-0.8) 06/07/24 14:11 Baso # (Auto) 0.0 10^3/uL (0.0-0.1) 06/07/24 14:11 Nucleated RBC % (auto) 0 % 06/07/24 14:11 Nucleated RBCs # 0.0 /100WBC 06/07/24 14:11 Sodium 138 mmol/L (136-145) 06/07/24 14:11 Potassium 4.6 mmol/L (3.5-5.1) 06/07/24 14:11 Chloride 102 mmol/L (98-107) 06/07/24 14:11 Carbon Dioxide 24 mmol/L (22-29) 06/07/24 14:11 Anion Gap 16.6 (5-19) 06/07/24 14:11 BUN 11 mg/dL (6-20) 06/07/24 14:11 Creatinine 0.9 mg/dL (0.7-1.2) 06/07/24 14:11 GFR Calculation 86.4 mL/min (90-130) L 06/07/24 14:11 Glucose 92 mg/dL (65-115) 06/07/24 14:11 Calculated Osmolality 285 mOsm/kg (285-295) 06/07/24 14:11 Calcium 9.4 mg/dL (8.5-10.5) 06/07/24 14:11 Total Bilirubin 0.9 mg/dL (0.15-1.2) 06/07/24 14:11 AST 24 U/L (0-40) 06/07/24 14:11 ALT 22 U/L (0-41) 06/07/24 14:11 Alkaline Phosphatase 96 U/L (40-130) 06/07/24 14:11 Total Protein 7.1 g/dL (6.6-8.7) 06/07/24 14:11 Albumin 4.4 g/dL (3.5-5.2) 06/07/24 14:11 Globulin 2.7 g/dL (1.3-4.6) 06/07/24 14:11 Lipase 46 U/L (13-60) 06/07/24 14:11 Urine Color Yellow (Yellow) 06/07/24 15:42 Urine Appearance Clear (CLEAR) 06/07/24 15:42 Urine pH 5.5 (5-7) 06/07/24 15:42 Ur Specific [place] 1.025 (1.005-1.030) 06/07/24 15:42 Urine Protein Negative (Negative) 06/07/24 15:42 Urine Glucose (UA) Negative (Normal) 06/07/24 15:42 Urine Ketones Negative (Negative) 06/07/24 15:42 Urine Blood Negative (Negative) 06/07/24 15:42 Urine Nitrate Negative (Negative) 06/07/24 15:42 Urine Bilirubin Negative (Negative) 06/07/24 15:42 Urine Urobilinogen 1.0 mg/dL (Negative) 06/07/24 15:42 Ur Leukocyte Esterase Trace (Negative) A 06/07/24 15:42 Urine RBC 0-2 /hpf (0-2) 06/07/24 15:42 Urine WBC 6-10 /hpf (0-5) 06/07/24 15:42 Ur Squamous Epith Cells 0-5 /hpf (0-5) 06/07/24 15:42 Amorphous Sediment Not Reportable 06/07/24 15:42 Urine Bacteria None seen /hpf (NONE) 06/07/24 15:42 Hyaline Casts 0.40 /lpf 06/07/24 15:42 All radiology interpretation(s) finalized by discharge Discharge Plan Discharge Patient Disposition: Home Clinical Impression: Abdominal pain Condition: Stable Prescriptions: No Action mecobalamin (vitamin B12) 1,000 mcg tablet,chewable 1,000 mcg PO DAILY Qty: 60 0RF fentanyl 50 mcg/hr patch 72 hour 50 mcg transdermal Q3D Zyrtec 10 mg Tablet 10 mg PO DAILY PRN (Reason: ALLERGIES) aspirin 81 mg Tablet,Delayed Release (Dr/Ec) 81 mg PO DAILY pregabalin 25 mg capsule 25 mg PO TID meloxicam 15 mg tablet 15 mg PO DAILY Qty: 5 0RF amoxicillin-pot clavulanate 875-125 mg tablet 1 tab PO BID Qty: 14 0RF hydrocodone-acetaminophen 10-325 mg tablet 1 tab PO QID PRN (Reason: Pain) 10 Days Qty: 14 0RF Discharge Orders: Discharge ED (Routine); Ordered 06/07/24 Ordered By: Yamel Sanchez Referrals: Gianni Guerrero MD [Physician] - 1-3 days Macey Ackerman MD [Primary Care Provider] - Discharge Diet: Advance as tolerated Discharge Activity: Resume usual activity Patient Instructions: Abdominal Pain (ED) Coding Level of Care Code ED Pipe Racker for Zach Crespo
[2024-06-07] MEDS: ondansetron 2 mg/ML SDV 2 mL 4 MG IVP (14:55)
[2024-06-07] MEDS: morphine 4 mg/mL SDV 1 mL IVP (14:55)
[2024-06-07] MEDS: diphenhydrAMINE 50 mg/mL SDV 1mL IVP (15:01)
[2024-06-07] MEDS: methylPREDNISolone sod succ 40 mg/mL INJ IVP (15:01)
[2024-06-07] MEDS: iohexol 350 mg/mL 500 mL Btl (per mL) IV (15:17)
[2024-06-07 16:06] LABS: Charge for UA Resulting for Rev
[2024-06-07 16:08] LABS: Bilirubin Urine Negative (Negative); Blood Urine Negative (Negative); Glucose Urine UA Negative (Normal); Ketones Urine Negative (Negative); Leukocyte Esterase Urine Trace (Negative); Nitrate Urine Negative (Negative); Protein Urine Negative (Negative); Specific Gravity, Urine 1.025 (1.005-1.030); Urine Appearance Clear (CLEAR); Urine Color Yellow (Yellow); pH Urine 5.5 (5-7)
[2024-06-07 16:16] LABS: Bacteria Urine None Seen /hpf; RBC Urine 0-2 /hpf (0-2); Squamous Epithelial Cell Urine 0-5 /hpf (0-5)
--- NOTE | 2024-06-08 11:00 | DCPLANNER ---
Message sent to General Surgery for referral with Cesar.
== END 2024-06-07 16:41 | disposition home or self-care (01) ==
PROVIDERS: Emergency Provider Emergency Medicine; PCP Family Medicine
DX: R10.9 Unspecified abdominal pain (principal); Z85.528 Personal history of other malignant neoplasm of kidney; Z85.72 Personal history of non-Hodgkin lymphomas; Z79.82 Long term (current) use of aspirin
CPT/HCPCS: 36415; 74177; 80053; 81003; 81015; 83690; 85025; 96374; 96375; 99285; J1200; J2270; J2405; J2919; Q9967

== ENCOUNTER 2024-09-14 07:47 | Day surgery (SDC) | payer BC, SELFPAY ==
[2024-09-14 07:58] VITALS: BP 130/86; PULSE 84; RESP 16; TEMP 36.1; O2SAT 98
[2024-09-14] MEDS: sodium chloride 0.9% 1,000 ML 30 ML IV (08:13)
--- NOTE | 2024-09-14 09:21 | ANES.PREANE2 ---
Pre-Anesthetic Assessment Height/Weight: Height 1.88 m Weight 83.915 kg Temp Pulse Resp BP Pulse Ox O2 Del Method 97.0 F L 84 16 130/86 98 Room Air 09/14/24 07:58 09/14/24 07:58 09/14/24 07:58 09/14/24 07:58 09/14/24 07:58 09/14/24 07:58 Operation Date: 09/14/24 09:00 Proposed Procedures p Colonoscopy - 84245, G0105, Z12.11(Not Applicable) - Nico Freed, Familial anesthetic complications: none Was Beta Kole taken within 24 hours: N/A Was Clonidine taken within 24 hours: N/A Last intake: Intake Last Liquid Date 09/13/24 Last Liquid Time 23:00 Last Solid Date 09/12/24 Last Solid Time 18:00 Social Alcohol (daily alcohol use) and No tobacco Exam alert, oriented x 3 and clear to auscultation bilaterally Airway Mallampati: Class II Comments: Comments: poor dentition, multiple broken and chipped, none are loose per pt History/ROS No significant history except as noted Pulmonary Sleep Apnea (does not use CPAP) pt states he had pneumonia 4 months ago and is on antibiotics for that. He does not currently have any symptoms CV/HEM None reported hx renal cell carcinoma Hepatic None reported GI None reported Metabolic [place] [facility] [place] None reported Neuropsych None reported Anesthetic Plan ASA status: 3 Anesthesia: MAC Risk of > 500 ml blood loss (7ml/kg in children): No Medications/Allergies Home Medications Medication Instructions Recorded Confirmed Last Taken Type fentanyl 50 mcg/hr transdermal 50 mcg transdermal Q3D 04/27/21 09/12/24 09/11/24 History patch mecobalamin (vitamin B12) 1,000 1,000 mcg PO DAILY #60 tabs 09/05/21 09/12/24 09/12/24 Rx mcg chewable tablet aspirin 81 mg tablet,delayed 81 mg PO DAILY 12/07/23 09/12/24 12/07/23 History release cetirizine 10 mg tablet (Zyrtec) 10 mg PO DAILY PRN ALLERGIES 12/07/23 09/12/24 09/12/24 History hydrocodone 10 mg-acetaminophen 1 tab PO QID PRN Pain 10 days #14 12/07/23 09/12/24 09/13/24 Rx 325 mg tablet tabs meloxicam 15 mg tablet 15 mg PO DAILY #5 tabs 12/07/23 09/12/24 09/12/24 Rx tamsulosin 0.4 mg capsule 0.4 mg PO DAILY 09/12/24 09/12/24 09/12/24 History azithromycin 250 mg tablet 250 mg PO .QOD 09/14/24 09/14/24 09/12/24 History Allergies Allergy/AdvReac Type Severity Reaction Status Date / Time rituximab [From Rituxan] Allergy Mild unk Verified 06/24/24 08:46 Iodinated Contrast Media Allergy ADR-Itching Verified 06/24/24 08:46 vancomycin Allergy ALGY-Redness Verified 06/24/24 08:46 of Skin Current Medications Generic Name Dose Route Start Last Admin Trade Name Freq PRN Reason Stop Dose Admin Sodium Chloride 1,000 mls @ 30 mls/hr 09/14/24 08:00 09/14/24 08:13 Sodium Chloride 0.9% IV 09/15/24 07:59 30 mls/hr .Q24H LAN Administration PFSH Anesthesia Medical History (Updated 06/28/24 @ 23:17 by Nico Freed DO) Polyarthritis Port-A-Cath in place Neuropathy Renal cell cancer Status post left nephrectomy Non Hodgkin's lymphoma Surgical History (Updated 06/28/24 @ 23:17 by Nico Freed DO) History of ankle surgery History of left nephrectomy Hx of biopsy neck and lungs History of laparoscopic appendectomy 12/07/23 Dr Guerrero S/P right knee arthroscopy History of cholecystectomy Family History Mother Cancer Hypertension Hyperlipidemia Rheumatoid arthritis Father Diabetes Denies family history of Lupus Heart attack Stroke Social History Smoking and tobacco/nicotine status: never used tobacco/nicotine Alcohol intake: current Alcohol intake frequency: few times a week Alcohol type: beer Substance/Drug Use: never Housing: House Data Anesthesia Cardiac Studies: No Data to Display
--- NOTE | 2024-09-14 09:52 | PM.HP ---
Providers/Chief Complaint Primary Care Provider: Macey Ackerman MD Chief Complaint: Z12.11 History of Present Illness Amandeep Velásquez is a 59 year old male Review of Systems General: Reports: 10 or more systems reviewed and unremarkable except in HPI and below Medications/Allergies Home Medications Medication Instructions Recorded Confirmed Last Taken Type fentanyl 50 mcg/hr transdermal 50 mcg transdermal Q3D 04/27/21 09/12/24 09/11/24 History patch mecobalamin (vitamin B12) 1,000 1,000 mcg PO DAILY #60 tabs 09/05/21 09/12/24 09/12/24 Rx mcg chewable tablet aspirin 81 mg tablet,delayed 81 mg PO DAILY 12/07/23 09/12/24 12/07/23 History release cetirizine 10 mg tablet (Zyrtec) 10 mg PO DAILY PRN ALLERGIES 12/07/23 09/12/24 09/12/24 History hydrocodone 10 mg-acetaminophen 1 tab PO QID PRN Pain 10 days #14 12/07/23 09/12/24 09/13/24 Rx 325 mg tablet tabs meloxicam 15 mg tablet 15 mg PO DAILY #5 tabs 12/07/23 09/12/24 09/12/24 Rx tamsulosin 0.4 mg capsule 0.4 mg PO DAILY 09/12/24 09/12/24 09/12/24 History azithromycin 250 mg tablet 250 mg PO .QOD 09/14/24 09/14/24 09/12/24 History Allergies Allergy/AdvReac Type Severity Reaction Status Date / Time rituximab [From Rituxan] Allergy Mild unk Verified 06/24/24 08:46 Iodinated Contrast Media Allergy ADR-Itching Verified 06/24/24 08:46 vancomycin Allergy ALGY-Redness Verified 06/24/24 08:46 of Skin PFSH Acute PFSH: Medical History Polyarthritis Port-A-Cath in place Neuropathy Renal cell cancer Status post left nephrectomy Non Hodgkin's lymphoma Surgical History History of ankle surgery History of left nephrectomy Hx of biopsy neck and lungs History of laparoscopic appendectomy 12/07/23 Dr Guerrero S/P right knee arthroscopy History of cholecystectomy Family History Mother Cancer Hypertension Hyperlipidemia Rheumatoid arthritis Father Diabetes Denies family history of Lupus Heart attack Stroke Social History Smoking and tobacco/nicotine status: never used tobacco/nicotine Alcohol intake: current Alcohol intake frequency: few times a week Alcohol type: beer Substance/Drug Use: never Housing: House Vitals/I&O/Wt Last Vital Signs Temp 97.0 F L 09/14/24 07:58 Pulse 84 09/14/24 07:58 Resp 16 09/14/24 07:58 BP 130/86 09/14/24 07:58 Pulse Ox 98 09/14/24 07:58 O2 Del Method Room Air 09/14/24 07:58 Weight last 48 hrs Weight 185 lb A&P Assessment and plan (1) Abnormal CT of the abdomen: Plan Colonoscopy Attestations Medical Necessity Statement*: Home Coding Level of Care Code Acute Code for g Fwd Diagnoses Abnormal CT of the abdomen R93.5
[2024-09-14 10:19] VITALS: BP 120/99; PULSE 65; RESP 18; TEMP 36.3; O2SAT 96
[2024-09-14] MEDS: ondansetron 2 mg/ML SDV 2 mL 4 MG IVP (10:35)
[2024-09-14 10:48] VITALS: RESP 16; O2SAT 99
[2024-09-14] MEDS: fentaNYL 50 mcg/mL INJ 2mL IVP (10:48)
[2024-09-14 11:17] VITALS: BP 123/85; PULSE 72; RESP 16; O2SAT 100
--- NOTE | 2024-09-14 11:22 | ANE.PACU2 ---
Inpatient post-anesthesia follow up: Airway intact: Yes Vital signs: Temperature 97.3 F Pulse Rate 72 Respiratory Rate 16 Blood Pressure 123/85 Pulse Oximetry 100 Oxygen Delivery Me thod Room Air Oxygen Flow Rate Fraction of Inspir ed Oxygen Hydration adequate: Yes Nausea and vomiting: No Pain level: 1 Mental status: Baseline
== END 2024-09-14 11:22 | disposition home or self-care (01) ==
PROVIDERS: PCP Family Medicine; Visit Provider Surgery
PROC: 0DJD8ZZ Inspection of Lower Intestinal Tract, Via Natural or Artificial Opening Endoscopic (ICD-10-PCS; CPT 45378; principal; 2024-09-14 09:00)
DX: Z12.11 Encounter for screening for malignant neoplasm of colon (principal); D12.0 Benign neoplasm of cecum; D12.4 Benign neoplasm of descending colon; G47.30 Sleep apnea, unspecified; Z79.82 Long term (current) use of aspirin
CPT/HCPCS: 45385; 88305; J2250; J2405; J2704; J3010; J7030

== ENCOUNTER → 2025-10-10 14:05 | Outpatient (BNVA) | payer BC, SELFPAY | PROVIDERS: PCP Family Medicine | DX: R39.89 Other symptoms and signs involving the genitourinary system (principal); R30.0 Dysuria | CPT/HCPCS: 81000; 87086 ==